=== PATIENT | male | born 1975 | race Caucasian/White ===

== ENCOUNTER 2019-04-07 12:32 | Inpatient (IN) | payer BC, OTHER ==
[2019-04-07] MEDS ORDERED: ONDANSETRON 4 MG/2 ML VIAL ONE ×2 (12:50→16:22)
[2019-04-07] MEDS ORDERED: MORPHINE 4 MG/ML SYR ONE ×2 (12:50→14:12)
[2019-04-07] MEDS ORDERED: NA CHLORIDE 0.9% 1,000 ML ONE ×2 (12:50→13:59)
[2019-04-07] MEDS ORDERED: METRONIDAZOLE 500mg IVPB 500 MG/100 ML BAG IV ONE (12:51)
[2019-04-07] MEDS ORDERED: CEFTRIAXONE/SWI 1gm 1 GM/10 ML SYR ONE (12:51)
[2019-04-07] MEDS ORDERED: CIPROFLOXACIN 400mg IV 400 MG/200 ML BAG IV ONE (12:51)
[2019-04-07 13:17] LABS: Absolute Lymphocytes (CBC) 0.9 K/uL (0.7-4.9); Basophils % 0.2 % (0-1.3); Hematocrit 40.8 % (39.6-49.0); Lymphocytes % 4.1 % (15.3-44.8); MPV 7.7 fL (7.6-11.3); RBC Red Blood Cell Count 4.49 M/uL (4.33-5.43)
[2019-04-07 13:18] LABS: Protime INR 1.34
--- NOTE | 2019-04-07 13:27 | RAD REPORT ---
EXAM DESCRIPTION: Tayo Single View04/07/2019 1:05 pm CLINICAL HISTORY: Abdominal pain COMPARISON: none FINDINGS: The lungs appear clear of acute infiltrate. The heart is normal size IMPRESSION: No acute abnormalities displayed
[2019-04-07 13:36] LABS: ALT/SGPT 45 U/L (12-78); AST/SGOT 13 U/L (15-37); Albumin 3.5 g/dL (3.4-5.0); Alkaline Phosphatase 73 U/L (45-117); BUN Blood Urea Nitrogen 21 mg/dL (7-18); Bicarbonate 27 mmol/L (21-32); Bilirubin Direct 0.4 mg/dL (0-0.2); Glucose Level 139 mg/dL (74-106); Lipase 54 U/L (73-393); Magnesium 2.2 mg/dL (1.8-2.4); NT PRO-BNP 58 pg/mL (<125); Potassium 3.4 mmol/L (3.5-5.1); Sodium Level 133 mmol/L (136-145); Troponin (Emerg Dept Use Only) < 0.02 ng/mL (0.0-0.045)
--- NOTE | 2019-04-07 13:37 | ER ---
Nurse's Notes [facility] Name: Timmy Ji Age: 43 yrs Sex: Male : 1975 Arrival Date: 04/07/2019 Time: 12:34 Bed 13 Private MD: Denisa Curry K Diagnosis: Abdominal tenderness;Fever, unspecified;Elevated white blood cell count;Diverticulitis of large intestine with perforation and abscess without bleeding;Hypokalemia Presentation: 04/07 12:37 Presenting complaint: Patient states: Nausea, diarrhea, abd pain since saturday. la1 Transition of care: patient was not received from another setting of care. Onset of symptoms was April 07, 2019. Risk Assessment: Do you want to hurt yourself or someone else? Patient reports no desire to harm self or others. Initial Sepsis Screen: Does the patient meet any 2 criteria? No. Patient's initial sepsis screen is negative. Does the patient have a suspected source of infection? No. Patient's initial sepsis screen is negative. Care prior to arrival: None. 12:37 Method Of Arrival: Ambulatory la1 12:37 Acuity: BEVERLY 3 la1 Historical: - Allergies: 12:38 No Known Allergies; la1 - PMHx: 12:38 None; la1 - PSHx: 12:38 None; la1 - Immunization history:: Adult Immunizations up to date. - Social history:: Smoking status: Patient/guardian denies using tobacco. - Ebola Screening: : No symptoms or risks identified at this time. - Family history:: not pertinent. Screenin:00 Abuse screen: Denies threats or abuse. Denies injuries from another. Nutritional sg screening: No deficits noted. Tuberculosis screening: No symptoms or risk factors identified. Never had TB. Fall Risk None identified. Assessment: 12:30 General: Appears uncomfortable, well groomed, well developed, well nourished, Behavior sg is calm, cooperative, appropriate for age. Neuro: Level of Consciousness is awake, alert, obeys commands, Oriented to person, place, time, situation, Moves all extremities. Gait is steady, Speech is normal, Facial symmetry appears normal. Cardiovascular: Capillary refill is brisk in bilateral fingers Chest pain is denied. Respiratory: Airway is patent Respiratory effort is even, unlabored, Respiratory pattern is regular, symmetrical. GI: Reports lower abdominal pain, diarrhea, nausea. : No signs and/or symptoms were reported regarding the genitourinary system. EENT: No signs and/or symptoms were reported regarding the EENT system. Derm: Skin is intact, is healthy with good turgor, Skin is clammy, Skin is pale, Skin temperature is cool. Musculoskeletal: Circulation, motion, and sensation intact. Range of motion: intact in all extremities. 13:43 Reassessment: Patient appears in no apparent distress at this time. Patient and/or sg family updated on plan of care and expected duration. Pain level reassessed. Patient is alert, oriented x 3, equal unlabored respirations, skin warm/dry/pink. pt transported to CT. 14:15 General: Appears in no apparent distress. uncomfortable, well developed, Behavior is sv calm, cooperative, appropriate for age. Pain: Complains of pain in left lower quadrant and right lower quadrant Pain currently is 9 out of 10 on a pain scale. Neuro: Level of Consciousness is awake, alert, obeys commands, Oriented to person, place, time, situation, Moves all extremities. Full function. Respiratory: Airway is patent Respiratory effort is even, unlabored, Respiratory pattern is regular, symmetrical. GI: Abdomen is distended. Derm: Skin is pale. 14:23 Reassessment: Dr Terrell at the bedside. sv Vital Signs: 12:38 BP 134 / 73; Pulse 105; Resp 16; Temp 98.4; Pulse Ox 98% on R/A; Weight 104.33 kg; la1 Height 5 ft. 10 in. (177.80 cm); Pain 9/10; 14:28 BP 97 / 66; Pulse 49; Resp 14; Pulse Ox 95% on R/A; ss 15:00 BP 138 / 89; Pulse 100; Resp 20; Pulse Ox 99% ; sv 12:38 Body Mass Index 33.00 (104.33 kg, 177.80 cm) la1 ED Course: 12:34 Patient arrived in ED. as 12:35 Edson Liang MD is Attending Physician. lizzy 12:36 Denisa Curry MD is Private Physician. as 12:38 Triage completed. la1 12:39 Arm band placed on left wrist. la1 12:46 Gil Gongora RN is Primary Nurse. sg 13:00 Initial lab(s) drawn, by me, sent to lab. Inserted saline lock: 20 gauge in right sg antecubital area, using aseptic technique. Blood collected. 13:08 XRAY Chest (1 view) In Process Unspecified. EDMS 13:33 Paramjit Mena MD is Hospitalizing Provider. lizzy 13:46 Patient has correct armband on for positive identification. Bed in low position. Call sv light in reach. Adult w/ patient. Pulse ox on. NIBP on. 13:47 Abdomen In Process Unspecified. EDMS 13:47 Report received from Gil ALMONTE. sv 13:49 EKG done, by spray technician. reviewed by Edson Liang MD. sm3 13:[address] Patient moved back from CT. sv 13:50 Awaiting lab results, Awaiting radiology results. sv 14:20 Mary Medina RN is Primary Nurse. sv 15:01 Type And Screen Sent. sv 15:03 Surgical consent explained by staff, explained by physician, signed by patient. sv 15:04 No provider procedures requiring assistance completed. Patient admitted, IV remains in sv place. intact. Administered Medications: 13:20 Drug: Zofran 4 mg Route: IVP; Site: right antecubital; ss 14:23 Follow up: Response: No adverse reaction sv 13:22 Drug: morphine 4 mg Route: IVP; Site: right antecubital; ss 14:23 Follow up: Response: No adverse reaction; No change in condition sv 13:23 Drug: Rocephin 1 grams Route: IV; Rate: per protocol; Site: right antecubital; ss 13:25 Drug: NS 0.9% 1000 ml Route: IV; Rate: 1 bolus; Site: right antecubital; ss 14:22 Follow up: Response: No adverse reaction; IV Status: Completed infusion; IV Intake: sv 1000ml 13:25 Drug: Flagyl 500 mg Volume: 100 ml; Route: IVPB; Rate: 200 ml/hr; Infused Over: 30 ss mins; Site: right antecubital; 14:22 Follow up: Response: No adverse reaction; IV Status: Completed infusion; IV Intake: sv 100ml 14:20 Drug: morphine 4 mg Route: IVP; Site: right antecubital; sv 14:52 Follow up: Response: No adverse reaction; No change in condition; RASS: Alert and Calm sv (0) 14:21 Drug: NS 0.9% 1000 ml Route: IV; Rate: 1 bolus; Site: right antecubital; sv 15:02 Follow up: Response: No adverse reaction; IV Status: Completed infusion; IV Intake: sv 1000ml 14:21 Drug: Potassium Chloride 20 mEq Route: IV; Rate: per protocol; Site: right antecubital; sv 15:16 Follow up: Response: No adverse reaction; IV Status: Infusion continued upon admission sv 14:22 Drug: Cipro 400 mg Volume: 200 ml; Route: IVPB; Infused Over: 60 mins; Site: right sv antecubital; 15:17 Follow up: Response: No adverse reaction; IV Status: Completed infusion; IV Intake: sv 200ml 15:00 Drug: NS 0.9% with KCl 20 mEq/L 1000 ml Route: IV; Rate: 125 ml/hr; Site: right sv antecubital; 15:16 Follow up: Response: No adverse reaction; IV Status: Infusion continued upon admission sv 15:16 Not Given (Patient Refused): Tylenol Suppository 650 mg [place] once sv Intake: 14:22 IV: 100ml; Total: 100ml. sv 14:22 IV: 1000ml; Total: 1100ml. sv 15:02 IV: 1000ml; Total: 2100ml. sv 15:17 IV: 200ml; Total: 2300ml. sv Outcome: 13:36 Decision to Hospitalize by Provider. [facility] 15:18 Admitted to OR accompanied by nurse, family with patient, via stretcher, with chart, sv Report called to Nelsy ALMONTE 15:18 Condition: stable 15:18 Instructed on the need for admit. 15:18 Patient left the ED. sv Signatures: Dispatcher [employer] Mary Phipps RN GAGE Gil Gongoar RN RN sg Anderson, Corey, MD MD cha Martinez, Amelia as Smirch, Shelby, RN RN ss Attema, Lee, RN RN Carmen Law3 Corrections: (The following items were deleted from the chart) 14:30 14:15 Derm: Skin is pink, warm \T\ dry. sv sv
--- NOTE | 2019-04-07 13:37 | EDPHYS ---
Physician Documentation [facility] Name: Timmy Ji Age: 43 yrs Sex: Male : 1975 Arrival Date: 04/07/2019 Time: 12:34 Bed 13 Private MD: Denisa Curry K ED Physician Edson Liang HPI: 04/07 12:46 This 43 yrs old Male presents to ER via Ambulatory with complaints of lizzy Abdominal Pain. 12:46 The patient presents with abdominal pain in the lower abdomen. Onset: The lizzy symptoms/episode began/occurred 3 day(s) ago. The symptoms do not radiate. Associated signs and symptoms: none. Modifying factors: The symptoms are alleviated by nothing, the symptoms are aggravated by pressure, walking. Severity of pain: At its worst the pain was moderate in the emergency department the pain is unchanged. The patient has not experienced similar symptoms in the past. Historical: - Allergies: 12:38 No Known Allergies; la1 - PMHx: 12:38 None; la1 - PSHx: 12:38 None; la1 - Immunization history:: Adult Immunizations up to date. - Social history:: Smoking status: Patient/guardian denies using tobacco. - Ebola Screening: : No symptoms or risks identified at this time. - Family history:: not pertinent. ROS: 12:46 Constitutional: Negative for fever, chills, and weight loss, Eyes: Negative for injury, lizzy pain, redness, and discharge, ENT: Negative for injury, pain, and discharge, Neck: Negative for injury, pain, and swelling, Cardiovascular: Negative for chest pain, palpitations, and edema, Respiratory: Negative for shortness of breath, cough, wheezing, and pleuritic chest pain, Back: Negative for injury and pain, : Negative for injury, bleeding, discharge, and swelling, MS/Extremity: Negative for injury and deformity, Skin: Negative for injury, rash, and discoloration, Neuro: Negative for headache, weakness, numbness, tingling, and seizure, Psych: Negative for depression, anxiety, suicide ideation, homicidal ideation, and hallucinations, Allergy/Immunology: Negative for hives, rash, and allergies, Endocrine: Negative for neck swelling, polydipsia, polyuria, polyphagia, and marked weight changes, Hematologic/Lymphatic: Negative for swollen nodes, abnormal bleeding, and unusual bruising. 12:46 Abdomen/GI: Positive for abdominal pain, abdominal distension, of the right lower quadrant and left lower quadrant. Exam: 12:46 Constitutional: This is a well developed, well nourished patient who is awake, alert, lizzy and in no acute distress. Head/Face: Normocephalic, atraumatic. Eyes: Pupils equal round and reactive to light, extra-ocular motions intact. Lids and lashes normal. Conjunctiva and sclera are non-icteric and not injected. Cornea within normal limits. Periorbital areas with no swelling, redness, or edema. ENT: Nares patent. No nasal discharge, no septal abnormalities noted. Tympanic membranes are normal and external auditory canals are clear. Oropharynx with no redness, swelling, or masses, exudates, or evidence of obstruction, uvula midline. Mucous membranes moist. Neck: Trachea midline, no thyromegaly or masses palpated, and no cervical lymphadenopathy. Supple, full range of motion without nuchal rigidity, or vertebral point tenderness. No Meningismus. Chest/axilla: Normal chest wall appearance and motion. Nontender with no deformity. No lesions are appreciated. Respiratory: Lungs have equal breath sounds bilaterally, clear to auscultation and percussion. No rales, rhonchi or wheezes noted. No increased work of breathing, no retractions or nasal flaring. Back: No spinal tenderness. No costovertebral tenderness. Full range of motion. Male : Normal genitalia with no discharge or lesions. Skin: Warm, dry with normal turgor. Normal color with no rashes, no lesions, and no evidence of cellulitis. MS/ Extremity: Pulses equal, no cyanosis. Neurovascular intact. Full, normal range of motion. Neuro: Awake and alert, GCS 15, oriented to person, place, time, and situation. Cranial nerves II-XII grossly intact. Motor strength 5/5 in all extremities. Sensory grossly intact. Cerebellar exam normal. Normal gait. Psych: Awake, alert, with orientation to person, place and time. Behavior, mood, and affect are within normal limits. 12:46 Cardiovascular: Rate: tachycardic, Rhythm: regular, Pulses: no pulse deficits are appreciated, Heart sounds: normal, Edema: is not appreciated, JVD: is not appreciated. 12:46 Abdomen/GI: Inspection: distension, Bowel sounds: normal, Palpation: moderate abdominal tenderness, in the right lower quadrant and left lower quadrant. Vital Signs: 12:38 BP 134 / 73; Pulse 105; Resp 16; Temp 98.4; Pulse Ox 98% on R/A; Weight 104.33 kg; la1 Height 5 ft. 10 in. (177.80 cm); Pain 9/10; 14:28 BP 97 / 66; Pulse 49; Resp 14; Pulse Ox 95% on R/A; ss 15:00 BP 138 / 89; Pulse 100; Resp 20; Pulse Ox 99% ; sv 12:38 Body Mass Index 33.00 (104.33 kg, 177.80 cm) la1 MDM: 12:40 Patient medically screened. [facility] 12:48 Data reviewed: vital signs, nurses notes, lab test result(s), EKG, radiologic studies, [facility] CT scan. 04/07 12:46 Order name: Basic Metabolic Panel; Complete Time: 13:55 [facility] 04/07 12:46 Order name: CBC with Diff; Complete Time: 14:51 [facility] 04/07 12:46 Order name: LFT's; Complete Time: 13:55 [facility] 04/07 12:46 Order name: Magnesium; Complete Time: 13:55 [facility] 04/07 12:46 Order name: NT PRO-BNP; Complete Time: 13:55 [facility] 04/07 12:46 Order name: PT-INR; Complete Time: 13:55 [facility] 04/07 12:46 Order name: Troponin (emerg Dept Use Only); Complete Time: 13:55 [facility] 04/07 12:46 Order name: XRAY Chest (1 view); Complete Time: 13:55 [facility] 04/07 12:46 Order name: Lipase; Complete Time: 13:55 [facility] 04/07 12:48 Order name: Stool Culture [facility] 04/07 12:48 Order name: Fecal Leukocyte Stain [facility] 04/07 13:19 Order name: Urine Dipstick--Ancillary (enter results) 04/07 14:34 Order name: Manual Differential; Complete Time: 14:51 EDMS 04/07 14:48 Order name: Type And Screen bd 04/07 12:46 Order name: EKG; Complete Time: 12:49 [facility] 04/07 12:46 Order name: Cardiac monitoring; Complete Time: 13:40 [facility] 04/07 13:45 Order name: CONS Physician Consult; Complete Time: 13:56 EDNC 04/07 13:47 Order name: Abdomen ; Complete Time: 14:09 EDNC 04/07 12:46 Order name: EKG - Nurse/Tech; Complete Time: 13:40 [facility] 04/07 12:46 Order name: IV Saline Lock; Complete Time: 13:41 [facility] 04/07 12:46 Order name: Labs collected and sent; Complete Time: 13:41 [facility] 04/07 12:46 Order name: O2 Per Protocol; Complete Time: 13:41 [facility] 04/07 12:46 Order name: O2 Sat Monitoring; Complete Time: 13:41 [facility] 04/07 12:46 Order name: Urine Dipstick-Ancillary (obtain specimen); Complete Time: 13:27 [facility] 04/07 13:55 Order name: NPO; Complete Time: 13:56 [facility] Administered Medications: 13:20 Drug: Zofran 4 mg Route: IVP; Site: right antecubital; ss 14:23 Follow up: Response: No adverse reaction sv 13:22 Drug: morphine 4 mg Route: IVP; Site: right antecubital; ss 14:23 Follow up: Response: No adverse reaction; No change in condition sv 13:23 Drug: Rocephin 1 grams Route: IV; Rate: per protocol; Site: right antecubital; ss 13:25 Drug: NS 0.9% 1000 ml Route: IV; Rate: 1 bolus; Site: right antecubital; ss 14:22 Follow up: Response: No adverse reaction; IV Status: Completed infusion; IV Intake: sv 1000ml 13:25 Drug: Flagyl 500 mg Volume: 100 ml; Route: IVPB; Rate: 200 ml/hr; Infused Over: 30 ss mins; Site: right antecubital; 14:22 Follow up: Response: No adverse reaction; IV Status: Completed infusion; IV Intake: sv 100ml 14:20 Drug: morphine 4 mg Route: IVP; Site: right antecubital; sv 14:52 Follow up: Response: No adverse reaction; No change in condition; RASS: Alert and Calm sv (0) 14:21 Drug: NS 0.9% 1000 ml Route: IV; Rate: 1 bolus; Site: right antecubital; sv 15:02 Follow up: Response: No adverse reaction; IV Status: Completed infusion; IV Intake: sv 1000ml 14:21 Drug: Potassium Chloride 20 mEq Route: IV; Rate: per protocol; Site: right antecubital; sv 15:16 Follow up: Response: No adverse reaction; IV Status: Infusion continued upon admission sv 14:22 Drug: Cipro 400 mg Volume: 200 ml; Route: IVPB; Infused Over: 60 mins; Site: right sv antecubital; 15:17 Follow up: Response: No adverse reaction; IV Status: Completed infusion; IV Intake: sv 200ml 15:00 Drug: NS 0.9% with KCl 20 mEq/L 1000 ml Route: IV; Rate: 125 ml/hr; Site: right sv antecubital; 15:16 Follow up: Response: No adverse reaction; IV Status: Infusion continued upon admission sv 15:16 Not Given (Patient Refused): Tylenol Suppository 650 mg [place] once sv Disposition: 04/07/19 13:36 Hospitalization ordered by Paramjit Mena for Inpatient Admission. Preliminary diagnosis are Abdominal tenderness, Fever, unspecified, Elevated white blood cell count, Diverticulitis of large intestine with perforation and abscess without bleeding, Hypokalemia. - Bed requested for Telemetry/MedSurg (Inpatient). - Status is Inpatient Admission. sv - Condition is Stable. - Problem is new. - Symptoms have improved. UTI on Admission? No Signatures: Dispatcher [employer] EDNC Citlalli Griffiths Stephanie, RN RN sv Anderson, Corey, MD MD cha Smirch, Shelby, RN RN ss Attema, Lee, RN RN la1 Max Juares RN RN ja1 Corrections: (The following items were deleted from the chart) 13:47 12:49 Abdomen Pelvis W Con+CT.RAD.BRZ ordered. EDNC EDMS 13:59 13:36 Hospitalization Ordered by Paramjit Mena MD for Inpatient Admission. Preliminary lizzy diagnosis is Abdominal tenderness; Fever, unspecified; Elevated white blood cell count. Bed requested for Telemetry/MedSurg (Inpatient). Status is Inpatient Admission. Condition is Stable. Problem is new. Symptoms have improved. UTI on Admission? No. lizzy 14:06 13:59 04/07/2019 13:36 Hospitalization Ordered by Paramjit Mena MD for Inpatient bd Admission. Preliminary diagnosis is Abdominal tenderness; Fever, unspecified; Elevated white blood cell count; Diverticulitis of large intestine with perforation and abscess without bleeding. Bed requested for Telemetry/MedSurg (Inpatient). Status is Inpatient Admission. Condition is Stable. Problem is new. Symptoms have improved. UTI on Admission? No. lizzy 14:50 14:06 04/07/2019 13:36 Hospitalization Ordered by Paramjit Mena MD for Inpatient ja1 Admission. Preliminary diagnosis is Abdominal tenderness; Fever, unspecified; Elevated white blood cell count; Diverticulitis of large intestine with perforation and abscess without bleeding. Bed requested for Telemetry/MedSurg (Inpatient). Status is Inpatient Admission. Condition is Stable. Problem is new. Symptoms have improved. UTI on Admission? No. 14:51 14:50 04/07/2019 13:36 Hospitalization Ordered by Paramjit Mena MD for Inpatient lizzy Admission. Preliminary diagnosis is Abdominal tenderness; Fever, unspecified; Elevated white blood cell count; Diverticulitis of large intestine with perforation and abscess without bleeding. Bed requested for Telemetry/MedSurg (Inpatient). Status is Inpatient Admission. Condition is Stable. Problem is new. Symptoms have improved. UTI on Admission? No. ja1 15:18 14:51 04/07/2019 13:36 Hospitalization Ordered by Paramjit Mena MD for Inpatient Admission. Preliminary diagnosis is Abdominal tenderness; Fever, unspecified; Elevated white blood cell count; Diverticulitis of large intestine with perforation and abscess without bleeding; Hypokalemia. Bed requested for Telemetry/MedSurg (Inpatient). Status is Inpatient Admission. Condition is Stable. Problem is new. Symptoms have improved. UTI on Admission? No. lizzy
[2019-04-07] MEDS ORDERED: NS KCL 20MEQ 1,000 ML IV ONE (13:59)
[2019-04-07] MEDS ORDERED: KCL 20 MEQ/100 mL IVPB 20 MEQ/100 ML BAG IV ONE (13:59)
--- NOTE | 2019-04-07 14:00 | RAD REPORT ---
EXAM DESCRIPTION: CT - Abdomen Pelvis Wo Contrast - 04/07/2019 1:45 pm CLINICAL HISTORY: Abdominal pain COMPARISON: None TECHNIQUE: Computed axial tomography of the abdomen and pelvis was obtained. IV and oral contrast we re not requested. All CT scans are performed using dose optimization technique as appropriate and may include automated exposure control or mA/KV adjustment according to patient size. FINDINGS: The evaluation of solid organs, vessels and bowel is limited secondary to the lack of con trast administration. Fatty liver Spleen, pancreas, adrenals and kidneys appear grossly normal. Diverticula stem from the colon. Extraluminal air surrounds the sigmoid colon within the mesocolon. T he ill-defined air measures approximately 7 x 3 centimeters. A fluid-filled abscess is not present. M oderate stranding within the adjacent fat. Small amount of ascites Small inguinal hernias contain fat IMPRESSION: Perforated sigmoid diverticulitis
[2019-04-07] MEDS ORDERED: ACETAMINOPHEN 650MG/RECT SUPP PR ONE (14:12)
[2019-04-07 14:30] LABS: Blood Morphology Comment NOT SEEN (NOT SEEN); Platelet Estimate ADEQ
[2019-04-07] MEDS ORDERED: ACETAMINOPHEN 325 MG TABLET PO PRN (15:06)
[2019-04-07] MEDS ORDERED: MORPHINE 4 MG/ML SYR IV PRN (15:06)
[2019-04-07] MEDS ORDERED: ONDANSETRON 4 MG/2 ML VIAL IV PRN ×2 (15:06→18:08)
[2019-04-07] MEDS ORDERED: Ringers Lactate 1,000 ML IV ONE ×2 (15:19→16:51)
[2019-04-07] MEDS ORDERED: PROPOFOL 200 MG/20 ML VIAL IV ONE (15:31)
[2019-04-07] MEDS ORDERED: FENTANYL CITR 250 MCG/5 ML ONE (15:31)
[2019-04-07] MEDS ORDERED: LIDOCAINE 2% MPF 5 ML VIAL ONE (15:32)
[2019-04-07] MEDS ORDERED: ROCURONIUM 50 MG/5 ML VIAL IV ONE ×2 (15:32→16:53)
[2019-04-07] MEDS ORDERED: SUCCINYLCHOLINE 20 MG/ML (10 ML) IV ONE (15:34)
[2019-04-07] MEDS ORDERED: NA CIT/CITRIC AC 30 ML ORAL UDC ONE (15:36)
--- NOTE | 2019-04-07 15:59 | EKG ---
Test Date: 2019-04-07 Test Time: 13:28:23 Feeder Tender: KYRA MEASUREMENT RESULTS: Intervals: Rate: 102 TX: 156 QRSD: 114 QT: 336 QTc: 437 [place]: P: 53 TX: 156 QRS: 77 T: 20 INTERPRETIVE STATEMENTS: Sinus tachycardia Nonspecific ST and T wave abnormality Abnormal ECG No previous ECG available for comparison Electronically Signed On 04-07-19 15:58:01 CDT by Juan Carlos Yee
[2019-04-07] MEDS ORDERED: dexAMETHasone 10 MG/ML VIAL ONE (16:22)
[2019-04-07] MEDS ORDERED: KETOROLAC 30 MG/ML INJ ONE (16:32)
[2019-04-07] MEDS ORDERED: NEOSTIGMINE 1 MG/ML -10 ML VIAL ONE ×2 (17:00→17:24)
[2019-04-07] MEDS ORDERED: GLYCOPYRROLATE 0.2 MG/ML SYR ONE ×2 (17:00→17:24)
[2019-04-07] MEDS ORDERED: Phenylephrine HCl 10 MG/ML 1 ML VIAL ONE (17:20)
[2019-04-07] MEDS ORDERED: NALOXONE 0.4 MG/ML VIAL ONE (17:31)
--- NOTE | 2019-04-07 17:35 | P.OP ---
Recreation Superintendent: Germain ROSE Preoperative diagnosis: Perforated Acute Sigmoid Diverticulitis Postoperative diagnosis: same Primary procedure: Exp Lap, Sigmoid Resection, Colostomy (Cao's Procedure) Anesthesia: General Estimated blood loss: min Specimen: Sigmoid Colon Findings: as above Complications: None Drain(s): Nasogastric, Urinary catheter, JUSTEN drain Transferred to: Recovery Room Condition: Good
[2019-04-07] MEDS ORDERED: LABETALOL HCL 100 MG/20 ML ONE (17:42)
[2019-04-07] MEDS ORDERED: MIDAZOLAM HCL 2 MG/2 ML INJ ONE (17:47)
[2019-04-07] MEDS ORDERED: NALOXONE 0.4 MG/ML VIAL IV PRN (18:08)
[2019-04-07] MEDS ORDERED: SODIUM CHLORIDE 0.9% 10ML INJ IV PRN (18:08)
[2019-04-07] MEDS: HYDROMORPHONE HCL 1 MG/ML INJ ONE ×6 (18:20→18:45)
[2019-04-07] MEDS: NS KCL 20MEQ 20 MEQ/1,000 ML BAG IV SCH ×2 (19:37→23:06)
[2019-04-07] MEDS: METRONIDAZOLE 500mg IVPB 500 MG/100 ML BAG IV SCH (19:39)
[2019-04-07] MEDS: HYDROMORPHONE/PCA 10 MG/50 ML SYR IV PRN (19:40)
[2019-04-07] MEDS: HYDROMORPHONE HCL 1 MG/ML INJ IV PRN (19:57)
--- NOTE | 2019-04-07 20:01 | PREOPCON ---
Date of Consultation: 04/07/2019 Reason For Consultation: Abdominal pain. History Of Present Illness: The patient is a 43-year-old gentleman, who comes in with lower abdomina l pain beginning as a diffuse abdominal pain on Saturday and then localizing to the left lower quadra nt and suprapubic region. He denies any nausea or vomiting currently, occasional diarrhea, occasiona l constipation. No blood in his stool. No dysuria or hematuria. No sore throat, runny nose, cough, headaches, or dizziness. No chest pain. No fever or chills. He has never had pain like this and t here is no family history of colorectal malignancies. Review of Systems: Otherwise unremarkable. Past Medical History: Negative. Past Surgical History: Negative. Allergies: NO ALLERGIES. Social History: He vapes. He does not smoke cigarettes. Drinks occasionally. Family History: Significant for brain cancer. Physical Examination: Vital Signs: Significant for slightly elevated pulse rate 105. Otherwise, vitals are stable. He is afebrile. General: He is awake, alert, and oriented x3. Head and Neck: Cranial nerves 2 through 12 are grossly within normal limits. No neck masses. No JV D. Throat clear. Neck is supple. Chest: Clear. Heart: S1, S2. Abdomen: Soft. Minimal distention. Hypoactive bowel sounds. The left lower quadrant suprapubic re gion, patient has rebound, rigidity, and guarding tenderness. Extremities: Adequately perfused. Nontender. Neurologic: Nonfocal. Diagnostic Data: His CT of the abdomen and pelvis reviewed with Dr. Epstein and it shows a perforat ed sigmoid diverticulitis with ill-defined air, measuring approximately 7 x 3 cm. There is extralumi nal air surrounds the sigmoid colon within the mesocolon and there is diverticula from the colon as w ell. A fluid-fill abscess is not present. There is moderate stranding within the adjacent fat. The re is small amount of ascites. His chest x-ray is within normal limits. Laboratory Data: Reviewed. His white count is 22.3 with a left shift. His INR is 1.34. His chemis try reviewed. Potassium is 3.4, BUN is 21, creatinine is 1.4. Assessment: A 43-year-old gentleman with acute sigmoid perforated diverticulitis with peritonitis an d significant leukocytosis. Recommendations: We will proceed with exploratory laparotomy, Diaz's procedure with sigmoid rese ction with end colostomy. Risks, benefits, and alternatives were explained to the patient and family in detail. He was advised that he would need a colonoscopy prior to reversal in approximately 3 mon ths. He understands and agrees. GLENDA/BONY Voice ID: [id number] Report ID: [id number]
[2019-04-07] MEDS ORDERED: HYDROMORPHONE HCL 1 MG/ML INJ IV ONE (20:12)
[2019-04-07] MEDS ORDERED: FAMOTIDINE 20 MG/2 ML VIAL IV SCH (21:00)
[2019-04-07] MEDS: CIPROFLOXACIN 400mg IV 400 MG/200 ML BAG IV SCH (23:03)
[2019-04-08] MEDS: HYDROMORPHONE HCL 1 MG/ML INJ IV PRN ×5 (00:20→21:11)
[2019-04-08] MEDS: METRONIDAZOLE 500mg IVPB 500 MG/100 ML BAG IV SCH ×5 (00:20→23:41)
--- NOTE | 2019-04-08 00:58 | OP ---
Date of Procedure: 04/07/2019 Surgeon: Faustino Terrell MD Negative Retoucher: ROSE Newton Preoperative Diagnosis: Acute perforated sigmoid diverticulitis. Postoperative Diagnosis: Acute perforated sigmoid diverticulitis. Procedure: Exploratory laparotomy, sigmoid resection, colostomy, Diaz procedure. Estimated Blood Loss: Minimal. Specimen: Sigmoid colon. Findings: As above. Anesthesia: General. Complications: None. Drains: JUSTEN #10 flat. Disposition: Patient tolerated the procedure in stable condition and taken to Recovery in good gener al condition. Procedure In Detail: Patient was brought to the OR and placed in supine position. General anesthesi a was begun. Patient was prepped and draped in the usual sterile fashion. Then, 20 blade was used t o make a generous midline incision from just above the umbilicus to the pubis. Subcutaneous tissue w as divided. The fascia was identified and divided. The peritoneal cavity was entered with sharp and blunt dissection. Exploratory laparotomy was performed. Normal GE junction. Normal stomach. Norm al duodenum. Normal small bowel from ligament of Treitz to the cecum. Normal appendix. Ascending c olon, transverse colon, descending colon, proximal and mid sigmoid colon were within normal limits. The distal sigmoid colon was in the pelvis below the sacral promontory. It was greatly dilated. The re was pus around it. There was some fecal material present as well. This was all aspirated and the n mid sigmoid colon point was identified. Proximal normal sigmoid colon to the inflamed indurated an d perforated sigmoid colon. Then, a contour stapler was used to divide this. Then, LigaSure was use d to divide the mesocolon all the way down into the pelvis where normal rectum was palpated. The con tour stapler was used to divide that at the sigmoid rectal junction. The specimen was opened in the operating room. After it was removed, there was no tumor seen. There was all inflammation. White l ine was mobilized in the left pericolic gutter and then the sigmoid colon was mobilized to make sure there would not be a tension with colostomy and then a 2 cm incision on the skin was made. Subcutane ous fat was excised. Fascia was identified and divided, and then dilated to 2 fingers diameter and t hen the end of the sigmoid colon was pulled through in the fascial opening and secured with Allis cla mps. While the abdomen was thoroughly irrigated, effluent was clear. The Jun-Chavez drain #10 fl at was placed in the pelvis and secured with 3-0 nylon. Then, there was no evidence of bowel injury or other evidence of disease seen. #2 nylon was used to close the midline fascia. Subcutaneous woun ds were irrigated, bleeding was controlled with cautery, and then aleta were used to close the skin . Sterile dressing was applied on that side and then the colostomy was matured with 3-0 interrupted chromic sutures circumferential and the colostomy was digitally examined. There was no evidence of a ny obstruction. Then, colostomy bag was place and the patient was awakened and taken to Recovery in good general condition. /MODL Voice ID: [id number] Report ID: [id number]
[2019-04-08 04:57] LABS: Absolute Lymphocytes (CBC) 0.7 K/uL (0.7-4.9); Basophils % 0.1 % (0-1.3); Hematocrit 37.5 % (39.6-49.0); Lymphocytes % 3.3 % (15.3-44.8); MPV 7.7 fL (7.6-11.3); RBC Red Blood Cell Count 4.05 M/uL (4.33-5.43)
[2019-04-08 05:20] LABS: Bilirubin Direct 0.3 mg/dL (0-0.2); Bilirubin Total 0.7 mg/dL (0.2-1.0); Magnesium 2.2 mg/dL (1.8-2.4); Phosphorus 3.3 mg/dL (2.5-4.9); Potassium 4.1 mmol/L (3.5-5.1); Protein, Total 7.1 g/dL (6.4-8.2)
[2019-04-08] MEDS: NS KCL 20MEQ 20 MEQ/1,000 ML BAG IV SCH ×3 (07:28→23:06)
[2019-04-08] MEDS: HYDROMORPHONE/PCA 10 MG/50 ML SYR IV PRN (09:20)
[2019-04-08] MEDS: PANTOPRAZOLE 40 MG INJ IVP SCH (09:21)
[2019-04-08] MEDS: ENOXAPARIN 40 MG/0.4 ML SQ SCH (09:21)
[2019-04-08] MEDS: CIPROFLOXACIN 400mg IV 400 MG/200 ML BAG IV SCH ×2 (09:22→21:10)
--- NOTE | 2019-04-08 10:23 | PN ---
Date of Progress Note: 04/08/2019 Subjective: Patient is awake and alert. Physical Examination: Vital Signs: Significant for slight tachycardia. Blood pressure is little high and his respiratory status occasionally is above 22. He is afebrile. His I's and O's are significant for 100 cc of sero sanguineous fluid in the JUSTEN drain. Urine output is adequate. NG tube is 50 cc this shift, 400 cc pr ior shift. Abdomen: Soft, slightly distended. Hypoactive bowel sounds. JUSTEN drain has serosanguinous fluid in i t. Ostomy has some serous fluid and the mucosa is slightly edematous, but it has a good red look to it as well. Assessment: Status post Diaz procedure, perforated sigmoid diverticulitis. Recommendations: Continue n.p.o., NG tube, IV fluid, IV antibiotics. Encourage ambulation, incentiv e spirometry. Continue monitoring in the ICU as patient is still has leukocytosis significantly. Pr obably can be transferred to the floor tomorrow. We will get a dietary consultation for his divertic ulitis and also manages pain parenterally. /MODL Voice ID: [id number] Report ID: [id number]
[2019-04-08] MEDS ORDERED: LORazepam 2 MG/ML VIAL IV PRN (17:10)
--- NOTE | 2019-04-08 21:21 | P.HP ---
Certification for Inpatient Patient admitted to: Inpatient With expected LOS: >2 Midnights Practitioner: I am a practitioner with admitting privileges, knowledge of patient current condition, hospital course, and medical plan of care. Services: Services provided to patient in accordance with Admission requirements found in Title 42 Section 412.3 of the Code of Federal Regulations Patient History Date of Service: 04/08/19 Reason for admission: ABDOMEN PAIN History of Present Illness: MR. MÁRQUEZ HAS HAD DIVERTICULITIS ABOUT 10 YEARS AGO. HE DOES NOT FOLLOW DIET OF NOT EATING SEEDS. HE COMES WITH ACUTE VANESSA IN 4 DAYS. HE HAD LARGE PHLEGMON WITH RUPTURED DIVERTICUAR INFECTION. DR. CHAMPION DID EMERGENT SURGERY. HE HAD TO DO PARTIAL COLECTOMY. I COULD NOT SEE HIM LAST PM WHEN I CAME HE WAS IN SURGERY. I SAW HIM THIS AM. Allergies No Known Allergies Allergy (Unverified 04/07/19 15:05) Home Medications: NK [No Home Meds] 04/07/19 - Past Medical/Surgical History Has patient received pneumonia vaccine in the past: No Diabetic: No -: diverticulitis - Family History Father -: Diabetes Mother -: Hypertension - Social History Smoking Status: Former smoker Alcohol use: No CD- Drugs: No Caffeine use: Yes Place of Residence: Home Review of Systems 10-point ROS is otherwise unremarkable General: Weakness Gastrointestinal: Abdominal Pain, No Distention Physical Examination - Vital Signs Temperature: 98.9 F Blood Pressure: 143/92 Pulse: 111 Respirations: 19 Pulse Ox (%): 96 - Physical Exam General: Alert, Mild distress HEENT: Atraumatic, PERRLA, Mucous membr. moist/pink, EOMI, Sclerae nonicteric Neck: Supple, 2+ carotid pulse no bruit, No LAD, Without JVD or thyroid abnormality Respiratory: Clear to auscultation bilaterally, Normal air movement Cardiovascular: Regular rate/rhythm, Normal S1 S2 Gastrointestinal: Absent bowel sounds, Tenderness Musculoskeletal: No tenderness Integumentary: No rashes Neurological: Normal gait, Normal speech, Normal strength at 5/5 x4 extr, Normal tone, Normal affect Lymphatics: No axilla or inguinal lymphadenopathy Assessment and Plan - Problems (Diagnosis) (1) Rupture of colon Current Visit: Yes Status: Acute Plan: FROM DIVERTICULTIS. IV ABX. SP PARTIAL COLECTOMY. HE WILL STOP ALL SEEDS. STABLE. - Advance Directives Does patient have a Living Will: No Does patient have a Durable POA for Healthcare: No
[2019-04-09] MEDS: HYDROMORPHONE/PCA 10 MG/50 ML SYR IV PRN ×2 (00:18→19:01)
[2019-04-09] MEDS: HYDROMORPHONE HCL 1 MG/ML INJ IV PRN (00:18)
[2019-04-09] MEDS: NS KCL 20MEQ 20 MEQ/1,000 ML BAG IV SCH ×5 (04:03→18:00)
[2019-04-09] MEDS: METRONIDAZOLE 500mg IVPB 500 MG/100 ML BAG IV SCH ×3 (05:00→17:19)
[2019-04-09 06:27] LABS: Absolute Lymphocytes (CBC) 1.4 K/uL (0.7-4.9); Basophils % 0.1 % (0-1.3); Hematocrit 35.9 % (39.6-49.0); Lymphocytes % 9.2 % (15.3-44.8); MPV 7.5 fL (7.6-11.3); RBC Red Blood Cell Count 3.88 M/uL (4.33-5.43)
[2019-04-09 06:30] LABS: Potassium 3.9 mmol/L (3.5-5.1)
[2019-04-09 07:47] LABS: Magnesium 2.5 mg/dL (1.8-2.4); Phosphorus 1.4 mg/dL (2.5-4.9)
--- NOTE | 2019-04-09 10:22 | RAD REPORT ---
EXAM DESCRIPTION: Tayo Single View04/09/2019 9:43 am CLINICAL HISTORY: fever COMPARISON: April 07 FINDINGS: The lungs appear clear of acute infiltrate. The heart is normal size A nasogastric tube is been placed into the stomach
[2019-04-09] MEDS: CIPROFLOXACIN 400mg IV 400 MG/200 ML BAG IV SCH ×2 (10:29→20:10)
[2019-04-09] MEDS: PANTOPRAZOLE 40 MG INJ IVP SCH (10:29)
[2019-04-09] MEDS: ENOXAPARIN 40 MG/0.4 ML SQ SCH (10:29)
[2019-04-09] MEDS: METOPROLOL TARTRATE 5 MG/5 ML INJ IV SCH ×3 (10:53→23:45)
--- NOTE | 2019-04-09 11:34 | EKG ---
Test Date: 2019-04-09 Test Time: 10:39:04 Metal Fitter: ANTOINE/T MEASUREMENT RESULTS: Intervals: Rate: 112 MD: 166 QRSD: 98 QT: 326 QTc: 444 [place]: P: 48 MD: 166 QRS: 71 T: 31 INTERPRETIVE STATEMENTS: Sinus tachycardia Incomplete right bundle branch block Borderline ECG Compared to ECG 04/07/2019 13:28:23 Incomplete right bundle-branch block now present ST (T wave) deviation no longer present Electronically Signed On 04-09-19 11:34:13 CDT by Juan Carlos Yee
--- NOTE | 2019-04-09 14:19 | RAD REPORT ---
EXAM DESCRIPTION: CT - Chest For Pe Angio - 04/09/2019 1:50 pm CLINICAL HISTORY: Shortness of breath, chest pain, recent history of perforated diverticulitis, gabrielle st film April 09 COMPARISON: Chest film April 09 TECHNIQUE: Dynamically enhanced 3 mm thick images of the chest were obtained during administration o f approximately 150mL Isovue 370 IV contrast. Coronal and oblique MIP reconstruction images were gene rated and reviewed. Exam utilizes a protocol to evaluate the pulmonary arterial tree. All CT scans are performed using dose optimization technique as appropriate and may include automated exposure control or mA/KV adjustment according to patient size. FINDINGS: No pulmonary emboli identifiable. The central and lobar branches are clear. Segmental bran ches also appear clear of pulmonary embolic disease. There is motion degradation involving the periph eral branches of each lower lobe. Exam sensitivity is diminished. Likelihood of pulmonary embolic dis ease is felt to be quite low for these branches. The aorta as imaged shows no acute or suspicious finding. No pericardial thickening or effusion. No infiltrate or mass in the lung parenchyma. No pleural effusion or pleural thickening. No mediastinal or hilar suspicious masses. No chest wall masses or abnormal axillary lymphadenopathy. NG tube is in place extending to the midportion of the stomach. IMPRESSION: No pulmonary emboli identified. Bilateral lower lobe far peripheral branch assessment is compromised by motion. Probability of signif icant pulmonary embolic disease within these branches felt to be quite low. No diffuse pulmonary edema, mass or consolidation of the lung parenchyma.
--- NOTE | 2019-04-09 16:17 | PN ---
Date of Progress Note: 04/09/2019 Subjective: Patient is awake and alert. He was agitated last night. His heart rate was up. He sti ll little agitated. He denies any significant issue with drinking alcohol. He was afebrile last nig ht, but this morning had low-grade temperature. He is not in any significant pain, however, blood pr essure is slightly elevated too. Objective: Vital Signs: Otherwise stable. Currently is afebrile. NG tube put out 1400, JUSTEN serosan guineous, ostomy 10 cc. Abdomen: Soft, nondistended, hypoactive bowel sounds. Ostomy mucosa is a little congested, little e dematous. Laboratory Data: Reviewed. His white count is decreased. Left shift is better. Electrolytes revie sat. Assessment: Status post Diaz procedure for perforated acute sigmoid diverticulitis. Recommendations: We will transfer the patient to the floor today. Continue IV fluids, IV antibiotic s. NG tube and Miller were discontinued yesterday. Continue JUSTEN drain. Encourage ambulation and DVT prophylaxis. Treat patient with Ativan p.r.n. for agitation. Clinically, patient is slowly improvin gSera /MODL Voice ID: [id number] Report ID: [id number]
--- NOTE | 2019-04-09 18:02 | P.PN ---
Subjective Date of Service: 04/09/19 Chief Complaint: SP SURGERY Subjective: C/O voiced (HE IS REALLY ANGRY TODAY NURSE THOUGHT HE WAS DRINKING ALCOHOL FROM BOTTLE IN HIS BAG. PER HIM IT WAS WATER BOTTLE. HE IS TO HAVE JUST ICE CHIPS FOR NOW. HE ALSO SAID NURSE SEARCHED HIS BAG AND HE WAS NOT HAPPY ABOUT IT. RN SAID SHE WAS PUTTING IT ON SIDE OF BED HE WAS HOLDING ON THE POST SURGICAL ABDOMEN. SHE DID NOT MEAN TO ACT LIKE SHE WAS SEARCHING IT.) Review of Systems 10-point ROS is otherwise unremarkable Physical Examination - Vital Signs Temperature: 98.6 F Blood Pressure: 134/72 Pulse: 104 Respirations: 20 Pulse Ox (%): 95 - Physical Exam General: Alert, Mild distress, Obese HEENT: Atraumatic, PERRLA, EOMI Neck: Supple, JVD not distended Respiratory: Clear to auscultation bilaterally, Normal air movement Cardiovascular: Regular rate/rhythm, Normal S1 S2 Gastrointestinal: Soft and benign, Absent bowel sounds Musculoskeletal: No tenderness Integumentary: No rashes Neurological: Normal speech, Normal tone, Normal affect Lymphatics: No axilla or inguinal lymphadenopathy - Studies Microbiology Data (last 24 hrs): 04/07/19 13:10 Stool Culture & Sensitivity - Final Medications List Reviewed: Yes Assessment And Plan - Current Problems (Diagnosis) (1) Rupture of colon Current Visit: Yes Status: Acute Plan: FROM DIVERTICULTIS. IV ABX. SP PARTIAL COLECTOMY. HE WILL STOP ALL SEEDS. STABLE. POST OP DAY 1. STABLE. (2) Insomnia Current Visit: Yes Status: Acute Plan: HE WANTED MEDS. I GAVE HIM ATIVAN BUT HE DID NOT SLEEP. HE SAYS HE DOES NOT DRINK AT ALL. I WILL GIVE IM 1 MG OF ATIVAN TONIGHT DC IN AM POSSIBLE.
[2019-04-09 18:28] LABS: Urine Blood 2+ (NEG); Urine Glucose NEGATIVE (NEG); Urine Protein 2+ (NEG); Urine Specific Gravity >1.030 (1.005-1.030)
[2019-04-09] MEDS: LORazepam 2 MG/ML VIAL IV PRN (19:32)
[2019-04-10] MEDS: METRONIDAZOLE 500mg IVPB 500 MG/100 ML BAG IV SCH ×4 (00:39→17:12)
[2019-04-10] MEDS: METOPROLOL TARTRATE 5 MG/5 ML INJ IV SCH ×3 (05:52→17:13)
[2019-04-10] MEDS: ENOXAPARIN 40 MG/0.4 ML SQ SCH (08:16)
[2019-04-10] MEDS: PANTOPRAZOLE 40 MG INJ IVP SCH (08:16)
[2019-04-10] MEDS: CIPROFLOXACIN 400mg IV 400 MG/200 ML BAG IV SCH ×2 (08:17→20:12)
[2019-04-10] MEDS: NS KCL 20MEQ 20 MEQ/1,000 ML BAG IV SCH ×2 (08:18→20:40)
[2019-04-10 09:14] LABS: BUN Blood Urea Nitrogen 17 mg/dL (7-18); Bicarbonate 27 mmol/L (21-32); Glucose Level 118 mg/dL (74-106); Magnesium 2.5 mg/dL (1.8-2.4); Phosphorus 3.1 mg/dL (2.5-4.9); Potassium 3.7 mmol/L (3.5-5.1); Sodium Level 140 mmol/L (136-145)
--- NOTE | 2019-04-10 09:58 | PN ---
Date of Progress Note: 04/10/2019 Subjective: Patient is awake, alert. Has a little bit of gas in his colostomy. Drinking water when he is not supposed to be, supposed to be taking ice chips, but he has been drinking a lot, therefore his NG tube output is significant, but it is mostly water that is coming out, it was 1300 mL last sh ift. His JUSTEN drain is only putting out 5. Urine output is adequate. His wound is clean, dry, and in tact. Abdomen is slightly distended. Hypoactive bowel sounds. Mucosa is pink, however, still a lit tle edematous, and there is some air in the colostomy bag. Assessment: Status post Diaz's procedure. Plan: We will continue NG tube and IV fluids and IV antibiotics today. We will encourage ambulation , incentive spirometry. Please note, patient did have a CT chest and angio, because he was tachycard ic and PE was ruled out. Patient is clinically improving slowly. Hopefully, we can begin diet cristina DOSHI/BONY Voice ID: [id number] Report ID: [id number]
[2019-04-10] MEDS ORDERED: CLOTRIMAZ/BETAMETH CREAM 15GM TOP PRN (12:10)
--- NOTE | 2019-04-10 19:00 | P.PN ---
Subjective Date of Service: 04/10/19 Chief Complaint: SP SURGERY Subjective: Improving HE IS PASSING SOME GAS. NO BM YET. HE IS NOT ANGRY ANY LONGER. Review of Systems 10-point ROS is otherwise unremarkable General: Weakness Gastrointestinal: Distention Physical Examination - Vital Signs Temperature: 97.1 F Blood Pressure: 125/76 Pulse: 87 Respirations: 17 Pulse Ox (%): 96 - Physical Exam General: Mild distress HEENT: Atraumatic, PERRLA, EOMI Neck: Supple, JVD not distended Respiratory: Clear to auscultation bilaterally, Normal air movement Cardiovascular: Regular rate/rhythm, Normal S1 S2 Gastrointestinal: Normal bowel sounds, No tenderness, Tenderness (POST OP. HE HAS COLOSTOMY BAG WITH GAS .) Musculoskeletal: No tenderness Integumentary: No rashes Neurological: Normal speech, Normal tone, Normal affect Lymphatics: No axilla or inguinal lymphadenopathy - Studies Medications List Reviewed: Yes Assessment And Plan - Current Problems (Diagnosis) (1) Rupture of colon Current Visit: Yes Status: Acute Plan: FROM DIVERTICULTIS. IV ABX. SP PARTIAL COLECTOMY. HE WILL STOP ALL SEEDS. STABLE. POST OP DAY 1. STABLE. POST OP STATUS. BOWELS HAVE NOT MOVED YET. NGT CONTINUE. HAS COLOSTOMY BAG WITH GAS IN IT. (2) Insomnia Current Visit: Yes Status: Acute Plan: HE WANTED MEDS. I GAVE HIM ATIVAN BUT HE DID NOT SLEEP. HE SAYS HE DOES NOT DRINK AT ALL. I WILL GIVE IM 1 MG OF ATIVAN TONIGHT DC IN AM POSSIBLE. (3) Sinus tachycardia Current Visit: Yes Status: Acute Plan: ASYMPTOMATIC. NO SIGNS OF SEPSIS, CHF, ETC. CT ANGIO NEGATIVE. LOPRESSOR QID STARTED WHILE NPO.
[2019-04-10] MEDS: HYDROMORPHONE/PCA 10 MG/50 ML SYR IV PRN (19:17)
[2019-04-10] MEDS: LORazepam 2 MG/ML VIAL IV PRN (20:12)
[2019-04-11] MEDS: METRONIDAZOLE 500mg IVPB 500 MG/100 ML BAG IV SCH ×5 (00:10→23:55)
[2019-04-11] MEDS: METOPROLOL TARTRATE 5 MG/5 ML INJ IV SCH ×5 (00:10→23:55)
[2019-04-11] MEDS: NS KCL 20MEQ 20 MEQ/1,000 ML BAG IV SCH ×2 (05:40→23:20)
[2019-04-11 06:14] LABS: Absolute Lymphocytes (CBC) 1.3 K/uL (0.7-4.9); Basophils % 0.2 % (0-1.3); Hematocrit 34.4 % (39.6-49.0); Lymphocytes % 9.2 % (15.3-44.8); RBC Red Blood Cell Count 3.72 M/uL (4.33-5.43)
[2019-04-11 06:17] LABS: BUN Blood Urea Nitrogen 13 mg/dL (7-18); Bicarbonate 26 mmol/L (21-32); Glucose Level 102 mg/dL (74-106); Magnesium 2.3 mg/dL (1.8-2.4); Potassium 3.8 mmol/L (3.5-5.1); Sodium Level 141 mmol/L (136-145)
[2019-04-11] MEDS: ENOXAPARIN 40 MG/0.4 ML SQ SCH (08:21)
[2019-04-11] MEDS: CIPROFLOXACIN 400mg IV 400 MG/200 ML BAG IV SCH ×2 (08:21→20:20)
[2019-04-11] MEDS: PANTOPRAZOLE 40 MG INJ IVP SCH (08:21)
--- NOTE | 2019-04-11 09:47 | PN ---
Date of Progress Note: 04/11/2019 Subjective: Patient is awake, alert. No complaint. Vital signs stable. Afebrile. Still has a lit tle bit of leukocytosis, left shift, however, is improving. Abdomen is soft. Positive bowel sounds. There is air in the ostomy bag. Mucosa is healthy. Assessment: Status post Diaz's procedure. Plan: We will clamp the NG tube. Start him on clear liquids. Continue IV antibiotics. Encourage a mbulation, incentive spirometry. /MODL Voice ID: [id number] Report ID: [id number]
--- NOTE | 2019-04-11 10:30 | P.PN ---
Subjective Date of Service: 04/11/19 Chief Complaint: SP SURGERY Subjective: Improving HE IS PASSING SOME GAS. NO BM YET. HE IS NOT ANGRY ANY LONGER. HE IS HAVING BM IN THE BAG NOW. STABLE. Review of Systems 10-point ROS is otherwise unremarkable Physical Examination - Vital Signs Temperature: 97.4 F Blood Pressure: 128/71 Pulse: 84 Respirations: 16 Pulse Ox (%): 97 - Physical Exam General: Alert, Obese HEENT: Atraumatic, PERRLA, EOMI Neck: Supple, JVD not distended Respiratory: Clear to auscultation bilaterally, Normal air movement Cardiovascular: Regular rate/rhythm, Normal S1 S2 Gastrointestinal: Normal bowel sounds, Soft and benign, Other (COLOSTOMY BAG IN PLACE.) Musculoskeletal: No tenderness Integumentary: No rashes Neurological: Normal speech, Normal tone, Normal affect Lymphatics: No axilla or inguinal lymphadenopathy - Studies Medications List Reviewed: Yes Assessment And Plan - Current Problems (Diagnosis) (1) Rupture of colon Current Visit: Yes Status: Acute Plan: FROM DIVERTICULTIS. IV ABX. SP PARTIAL COLECTOMY. HE WILL STOP ALL SEEDS. STABLE. POST OP DAY 1. STABLE. POST OP STATUS. BOWELS HAVE NOT MOVED YET. NGT CONTINUE. HAS COLOSTOMY BAG WITH GAS IN IT. STARTING TO HAVE BM. DOING A LOT BETTER. (2) Insomnia Current Visit: Yes Status: Acute Plan: HE WANTED MEDS. I GAVE HIM ATIVAN BUT HE DID NOT SLEEP. HE SAYS HE DOES NOT DRINK AT ALL. I WILL GIVE IM 1 MG OF ATIVAN TONIGHT DC IN AM POSSIBLE. (3) Sinus tachycardia Current Visit: Yes Status: Acute Plan: ASYMPTOMATIC. NO SIGNS OF SEPSIS, CHF, ETC. CT ANGIO NEGATIVE. LOPRESSOR QID STARTED WHILE NPO.
[2019-04-11] MEDS: LORazepam 2 MG/ML VIAL IV PRN (20:21)
[2019-04-11] MEDS: HYDROMORPHONE/PCA 10 MG/50 ML SYR IV PRN (20:26)
[2019-04-12] MEDS: METRONIDAZOLE 500mg IVPB 500 MG/100 ML BAG IV SCH ×4 (05:49→23:58)
[2019-04-12] MEDS: METOPROLOL TARTRATE 5 MG/5 ML INJ IV SCH ×2 (05:50→11:00)
[2019-04-12 06:20] LABS: Absolute Lymphocytes (CBC) 1.2 K/uL (0.7-4.9); Basophils % 0.2 % (0-1.3); Hematocrit 33.9 % (39.6-49.0); Lymphocytes % 10.1 % (15.3-44.8); MPV 7.1 fL (7.6-11.3); RBC Red Blood Cell Count 3.72 M/uL (4.33-5.43)
[2019-04-12] MEDS: PANTOPRAZOLE 40 MG INJ IVP SCH (07:41)
[2019-04-12] MEDS: ENOXAPARIN 40 MG/0.4 ML SQ SCH (07:41)
[2019-04-12] MEDS: CIPROFLOXACIN 400mg IV 400 MG/200 ML BAG IV SCH ×2 (07:41→20:25)
--- NOTE | 2019-04-12 11:53 | P.PN ---
Subjective Date of Service: 04/12/19 Chief Complaint: SP SURGERY Subjective: Improving HE IS PASSING SOME GAS. NO BM YET. HE IS NOT ANGRY ANY LONGER. HE IS HAVING BM IN THE BAG NOW. STABLE. WALKING WELL, NO PAIN, IS NOW ON FULL AND THEN SOLID FOOD THIS PM. Review of Systems 10-point ROS is otherwise unremarkable Physical Examination - Vital Signs Temperature: 98.5 F Blood Pressure: 122/69 Pulse: 83 Respirations: 18 Pulse Ox (%): 97 - Physical Exam General: Alert, Mild distress, Obese HEENT: Atraumatic, PERRLA, EOMI Neck: Supple, JVD not distended Respiratory: Clear to auscultation bilaterally, Normal air movement Cardiovascular: Regular rate/rhythm, Normal S1 S2 Gastrointestinal: Normal bowel sounds, No tenderness Musculoskeletal: No tenderness Integumentary: No rashes Neurological: Normal speech, Normal tone, Normal affect Lymphatics: No axilla or inguinal lymphadenopathy - Studies Medications List Reviewed: Yes Assessment And Plan - Current Problems (Diagnosis) (1) Rupture of colon Current Visit: Yes Status: Acute Plan: FROM DIVERTICULTIS. IV ABX. SP PARTIAL COLECTOMY. HE WILL STOP ALL SEEDS. STABLE. POST OP DAY 1. STABLE. POST OP STATUS. BOWELS HAVE NOT MOVED YET. NGT CONTINUE. HAS COLOSTOMY BAG WITH GAS IN IT. STARTING TO HAVE BM. DOING A LOT BETTER. ADVANCED DIET BY DR. HORTON. DC IN AM POSSIBLE. (2) Insomnia Current Visit: Yes Status: Acute Plan: HE WANTED MEDS. I GAVE HIM ATIVAN BUT HE DID NOT SLEEP. HE SAYS HE DOES NOT DRINK AT ALL. I WILL GIVE IM 1 MG OF ATIVAN JAVED DC IN AM POSSIBLE. (3) Sinus tachycardia Current Visit: Yes Status: Acute Plan: ASYMPTOMATIC. NO SIGNS OF SEPSIS, CHF, ETC. CT ANGIO NEGATIVE. LOPRESSOR QID STARTED WHILE NPO.
[2019-04-12] MEDS: NS KCL 20MEQ 20 MEQ/1,000 ML BAG IV SCH (12:40)
--- NOTE | 2019-04-12 12:47 | PN ---
Date of Progress Note: 04/12/2019 Subjective: Patient is awake, alert, tolerating clear liquids. His NG tube was removed yesterday. His vital signs are stable. He is afebrile. White count is down to 11.8. His abdomen is benign. T here is stool in the colostomy. Mucosa is pink. Abdomen is benign. Assessment: Status post Diaz's procedure. Plan: Continue IV antibiotics. We will advance his diet to full liquids for lunch and low-fiber GI soft for dinner. Hopefully, home in a day or 2, and he will go home on oral antibiotics for 2 weeks, follow up with me in the office, and then he will need a colonoscopy and a reversal in 3 months. Al so he needs a dietary consultation. GLENDA/BONY Voice ID: [id number] Report ID: [id number]
[2019-04-12] MEDS ORDERED: NS KCL 20MEQ 20 MEQ/1,000 ML BAG IV SCH (18:00)
[2019-04-12] MEDS: LORazepam 2 MG/ML VIAL IV PRN (20:26)
[2019-04-12] MEDS: HYDROMORPHONE/PCA 10 MG/50 ML SYR IV PRN (20:26)
[2019-04-13] MEDS: METRONIDAZOLE 500mg IVPB 500 MG/100 ML BAG IV SCH ×2 (05:35→13:07)
[2019-04-13 06:05] LABS: Absolute Lymphocytes (CBC) 1.2 K/uL (0.7-4.9); Basophils % 0.4 % (0-1.3); Hematocrit 34.9 % (39.6-49.0); Lymphocytes % 12.1 % (15.3-44.8); MPV 7.1 fL (7.6-11.3); RBC Red Blood Cell Count 3.82 M/uL (4.33-5.43)
[2019-04-13] MEDS: CIPROFLOXACIN 400mg IV 400 MG/200 ML BAG IV SCH (09:25)
[2019-04-13] MEDS: PANTOPRAZOLE 40 MG INJ IVP SCH (09:26)
[2019-04-13] MEDS: ENOXAPARIN 40 MG/0.4 ML SQ SCH (09:26)
[2019-04-13] MEDS: HYDROMORPHONE HCL 1 MG/ML INJ IV PRN (16:31)
--- NOTE | 2019-04-13 17:51 | P.DS ---
Admission Date: 04/07/19 Discharge Date: 04/13/19 Disposition: ROUTINE DISCHARGE Discharge Condition: FAIR Reason for Admission: SP SURGERY - Problems (1) Rupture of colon Current Visit: Yes Status: Acute (2) Insomnia Current Visit: Yes Status: Acute (3) Sinus tachycardia Current Visit: Yes Status: Acute Brief History of Present Illness: MR. MÁRQUEZ HAS HAD DIVERTICULITIS ABOUT 10 YEARS AGO. HE DOES NOT FOLLOW DIET OF NOT EATING SEEDS. HE COMES WITH ACUTE VANESSA IN 4 DAYS. HE HAD LARGE PHLEGMON WITH RUPTURED DIVERTICUAR INFECTION. DR. CHAMPION DID EMERGENT SURGERY. HE HAD TO DO PARTIAL COLECTOMY. I COULD NOT SEE HIM LAST PM WHEN I CAME HE WAS IN SURGERY. I SAW HIM THIS AM. MR. MÁRQUEZ IS DOING GREAT NOW. HE HAS IMPROVED. HE HAS COLOSTOMY WITH BM IN THERE. HE IS ABLE TOLERATE DIET. HE IS STABLE FOR DC. Vital Signs/Physical Exam: Temp Pulse Resp BP Pulse Ox 97.6 F 89 18 107/55 L 97 04/13/19 16:00 04/13/19 16:00 04/13/19 16:31 04/13/19 16:00 04/13/19 16:31 Laboratory Data at Discharge: WBC 10.3 K/uL (4.3-10.9) 04/13/19 05:44 Hgb 12.2 g/dL (13.6-17.9) L 04/13/19 05:44 Hct 34.9 % (39.6-49.0) L 04/13/19 05:44 Plt Count 395 K/uL (152-406) 04/13/19 05:44 PT 15.6 SECONDS (9.5-12.5) H 04/07/19 13:00 INR 1.34 04/07/19 13:00 Sodium 141 mmol/L (136-145) 04/11/19 05:34 Potassium 3.8 mmol/L (3.5-5.1) 04/11/19 05:34 BUN 13 mg/dL (7-18) 04/11/19 05:34 Creatinine 0.72 mg/dL (0.55-1.3) 04/11/19 05:34 Glucose 102 mg/dL (74-106) 04/11/19 05:34 Phosphorus 3.1 mg/dL (2.5-4.9) D 04/10/19 08:45 Magnesium 2.3 mg/dL (1.8-2.4) 04/11/19 05:34 Total Bilirubin 0.7 mg/dL (0.2-1.0) 04/08/19 04:38 AST 17 U/L (15-37) 04/08/19 04:38 ALT 39 U/L (12-78) 04/08/19 04:38 Alkaline Phosphatase 62 U/L (45-117) 04/08/19 04:38 Lipase 142 U/L (73-393) 04/08/19 04:38 Home Medications: NK [No Home Meds] 04/07/19 Diet: low fiber GI soft Activity: No lifting more than 10 lbs Followup: Paramjit Mena MD [ACTIVE - CAN ADMIT] - Faustino Terrell MD [ACTIVE - CAN ADMIT] - 04/23/19
--- NOTE | 2019-04-13 20:37 | PN ---
Date of Progress Note: 04/13/2019 Subjective: Patient is awake, alert, tolerating regular diet. Vital signs are stable, afebrile. Am bulating. Pain controlled with p.o. pain medication. Abdomen is benign. JUSTEN with minimal output. O stomy is working well. Assessment: Status post Diaz's procedure. Recommendation: Patient cleared for discharge from surgery standpoint. The patient will be on Cipro and Flagyl for 2 weeks. Tylenol #3 for pain. I will get home health for ostomy care and supplies. Dietitian consultation for dietary modification and follow up in my office in about 10 days. Patien t may shower and discontinue every other staple. /MODL Voice ID: [id number] Report ID: [id number]
== END 2019-04-13 18:14 | disposition home health service (06) | DRG 331 ==
LOC: ER 12:32 → ERHOLD 13:39 → 3RD-ICU 15:42 → 2ND 04-09 13:18
PROVIDERS: ADMIT Internal Medicine; ATTEND Internal Medicine
PROC: 0D1N0Z4 Bypass Sigmoid Colon to Cutaneous, Open Approach (ICD-10-PCS; 2019-04-07)
PROC: 0DBN0ZZ Excision of Sigmoid Colon, Open Approach (ICD-10-PCS; principal; 2019-04-07 15:00)
DX: K57.20 Diverticulitis of large intestine with perforation and abscess without bleeding (principal); F17.290 Nicotine dependence, other tobacco product, uncomplicated; E66.9 Obesity, unspecified; Z68.35 Body mass index [BMI] 35.0-35.9, adult; G47.00 Insomnia, unspecified; R00.0 Tachycardia, unspecified
CPT/HCPCS: 36415; 71045; 71275; 74176; 80048; 80076; 81003; 83605; 83690; 83735; 83880; 84100; 84145; 84484; 85025; 85379; 85610; 86850; 86900; 86901; 87040; 87045; 87046; 88305; 88307; 89055; 93005; 96365; 96367; 96368; 96375; 97116; 97161; 97530; 99285; C9113; J0330; J0696; J0744; J1100; J1170; J1650; J2250; J2310; J2370; J2405; J2704; J2710; J3010; J7030; Q9967

== ENCOUNTER → 2019-07-02 | Day surgery (SDC) | payer OTHER ==
[~2019-07-02] MED LIST: LIDOCAINE 1% MPF 30 ML VIAL ONE; PROPOFOL 200 MG/20 ML VIAL IV ONE; Ringers Lactate 1,000 ML IV ONE
[2019-07-02 06:46] LABS: Absolute Lymphocytes (CBC) 1.5 K/uL (0.7-4.9); Basophils % 0.1 % (0-1.3); Hematocrit 46.5 % (39.6-49.0); Lymphocytes % 18.7 % (15.3-44.8); MPV 7.5 fL (7.6-11.3); RBC Red Blood Cell Count 5.17 M/uL (4.33-5.43)
--- NOTE | 2019-07-02 07:54 | ENDO RPT ---
[address], [address] COLONOSCOPY PROCEDURE REPORT EXAM DATE: 07/02/2019 PATIENT NAME: Timmy Ji MR #: [id number] BIRTHDATE: 1975 ATTENDING: Faustino Terrell M.D. STATUS: outpatient METER TECHNICIAN: Flori Thakkar RN, Ashley Yu, and Melvina Dodd RN INDICATIONS: The patient is a 44 yr old Male here for a colonoscopy due to diverticulitis, colon cancer screening, and colon cancer screening PROCEDURE PERFORMED: Colonoscopy MEDICATIONS: Per Anesthesia. ESTIMATED BLOOD LOSS: None CONSENT: The patient understands the risks and benefits of the procedure and understands that these risks include, but are not limited to: sedation, allergic reaction, infection, perforation and/or bleeding. Alternative means of evaluation and treatment include, among others: physical exam, x-rays, and/or surgical intervention. The patient elects to proceed with this endoscopic procedure. DESCRIPTION OF PROCEDURE: During intra-op preparation period all mechanical medical equipment was checked for proper function. Hand hygiene and appropriate measures for infection prevention was taken. Procedure, possible complications, alternatives including, but not limited to possibility of bleeding, perforation, tear, infection, sepsis, need for surgery, need for blood transfusion, were explained to the patient. After the risks, benefits and alternatives of the procedure were thoroughly explained, Informed consent was verified, confirmed and timeout was successfully executed by the treatment team. The patient was placed in the left lateral position. A digital rectal exam was performed and revealed an enlarged prostate. After appropriate level of anesthesia, the scope was passed. The EC-[id number] ([id number]) endoscope was introduced through the anus and advanced to the cecum, which was identified by the ileocecal valve. The quality of the prep was good. The instrument was then slowly withdrawn as the colon was fully examined. Scope withdrawal time was 15 minutes. COLON FINDINGS: A normal appearing cecum, ileocecal valve, and appendiceal orifice were identified. the ascending, transverse, descending, sigmoid colon, and rectum appeared unremarkable. Retroflexed views revealed no abnormalities. The scope was then completely withdrawn from the patient and the procedure terminated. ADVERSE EVENTS: There were no complications. IMPRESSIONS: A normal appearing cecum, ileocecal valve, and appendiceal orifice were identified. the ascending, transverse, descending, sigmoid colon, and rectum appeared unremarkable RECOMMENDATIONS: follow-up: office 1 week(s) RECALL: Return in 10 year(s) for Colonoscopy. Faustino Terrell M.D. eSigned: Faustino Terrell M.D. 07/02/2019 7:54 AM cc: CPT CODES: ICD9 CODES: 600.0 Hypertrophy (benign) of prostate PATIENT NAME: Timmy Ji MR#: [id number]
[2019-07-02 08:26] VITALS: BP 113/88; TEMP 97.9; O2SAT 95
== END | disposition home or self-care (01) ==
LOC: OR 06:21
PROVIDERS: ATTEND Surgery
PROC: 0DJD8ZZ Inspection of Lower Intestinal Tract, Via Natural or Artificial Opening Endoscopic (ICD-10-PCS; principal; 2019-07-02 07:30)
DX: Z09 Encounter for follow-up examination after completed treatment for conditions other than malignant neoplasm (principal); Z90.49 Acquired absence of other specified parts of digestive tract
CPT/HCPCS: 45378; 85025; 80048; 36415; J2704 ×2; J7120

== ENCOUNTER 2019-07-06 07:26 | Inpatient (IN) | payer OTHER ==
[2019-07-06] MEDS ORDERED: Ringers Lactate 1,000 ML IV ONE ×3 (07:51→12:12)
[2019-07-06] MEDS ORDERED: CEFOXITIN/SWI 1gm 1 GM/10 ML SYR ONE (07:52)
[2019-07-06] MEDS ORDERED: METRONIDAZOLE 500mg IVPB 500 MG/100 ML BAG IV ONE (07:52)
[2019-07-06] MEDS ORDERED: FENTANYL CITR 100 MCG/2 ML ONE ×2 (08:17→13:34)
[2019-07-06] MEDS ORDERED: ROCURONIUM 50 MG/5 ML VIAL IV ONE ×3 (08:17→10:16)
[2019-07-06] MEDS ORDERED: MIDAZOLAM HCL 2 MG/2 ML INJ ONE (08:17)
[2019-07-06] MEDS ORDERED: PROPOFOL 200 MG/20 ML VIAL IV ONE (08:17)
[2019-07-06] MEDS ORDERED: LIDOCAINE 1% MPF 5 ML VIAL ONE (08:17)
[2019-07-06] MEDS ORDERED: FENTANYL CITR 250 MCG/5 ML ONE ×2 (09:07→10:27)
[2019-07-06] MEDS ORDERED: GLYCOPYRROLATE 0.2 MG/ML SYR ONE (11:43)
[2019-07-06] MEDS ORDERED: NEOSTIGMINE 1 MG/ML -5 ML ONE (11:44)
[2019-07-06] MEDS ORDERED: ONDANSETRON 4 MG/2 ML VIAL ONE (11:44)
[2019-07-06] MEDS ORDERED: KETOROLAC 30 MG/ML INJ ONE (11:45)
[2019-07-06] MEDS: HYDROMORPHONE HCL 1 MG/ML INJ ONE ×6 (12:46→13:23)
[2019-07-06] MEDS: MEPERIDINE HCL 25 MG/0.5 ML ONE ×2 (12:48→12:58)
[2019-07-06] MEDS ORDERED: PROMETHAZINE 25 MG/ML VIAL ONE (13:33)
[2019-07-06] MEDS ORDERED: MEPERIDINE HCL 25 MG/0.5 ML ONE (13:34)
[2019-07-06] MEDS ORDERED: MEPERIDINE HCL 50 MG/ML ONE (13:34)
[2019-07-06] MEDS ORDERED: ONDANSETRON 4 MG/2 ML VIAL IV PRN (13:58)
[2019-07-06] MEDS ORDERED: NA CHLORIDE 0.9% 1,000 ML ONE (14:37)
[2019-07-06] MEDS: HYDROMORPHONE/PCA 0 / ML SYR IV PRN (15:20)
[2019-07-06] MEDS: D5.45NS W/KCL 20MEQ 1,000 ML IV SCH (15:48)
[2019-07-06] MEDS: CEFOXITIN/SWI 1gm 1 GM/10 ML SYR IV SCH ×2 (16:01→19:15)
[2019-07-06] MEDS: METRONIDAZOLE 500mg IVPB 500 MG/100 ML BAG IV SCH ×2 (17:29→23:31)
[2019-07-06] MEDS ORDERED: NA CHLORIDE 0.9% 500 ML IV ONE ×2 (18:19→20:10)
[2019-07-06] MEDS: NA CHLORIDE 0.9% 500 ML ONE ×2 (18:20)
[2019-07-06] MEDS: HYDROMORPHONE HCL 1 MG/ML INJ IV PRN (22:21)
--- NOTE | 2019-07-07 00:07 | OP ---
Date of Procedure: 07/06/2019 Surgeon: Faustino Terrell MD College Athlete: ROSE Newton. Preoperative Diagnosis: Perforated diverticulitis with abscess status post Diaz's procedure. Postoperative Diagnosis: Perforated diverticulitis with abscess status post Diaz's procedure. Procedure Performed: Diagnostic laparoscopy, exploratory laparotomy, lysis of adhesions, and reversa l of colostomy. Intraoperative Consultation: Percy Hernandez M.D. Estimated Blood Loss: Minimal. Specimen: Sigmoid colostomy. Findings: As above. Anesthesia: General. Complications: None. Drains: JUSTEN #10 flat. Disposition: The patient tolerated the procedure in stable condition, taken to Recovery in good gene ral condition Procedure In Detail: Patient was brought to the OR and placed in supine position. General anesthesi a was begun. The patient was prepped and draped in usual sterile fashion. The colostomy was closed with running 2-0 silk interlocking suture in a sterile fashion. This was covered up and then the david gnostic laparoscopy portion of the case began with a 1 cm left upper quadrant incision. Subcutaneous tissue was divided. The fascia was identified and divided. A #1 Vicryl stay suture was placed. Pe ritoneal cavity was entered with sharp and blunt dissection. A 12 mm trocar was placed into the soledad toneal cavity under direct vision. Pneumoperitoneum was established and then a 5 mm trocar placed in the right upper quadrant. Laparoscopy revealed extensive adhesions to the midline omental in nature was taken down with ligature until complete freedom was obtained where the midline incision was. Th ere was a lot of scar tissues in the pelvis and in the left lower quadrant and this was as expected a nd at this time, I decided to convert to an open procedure. Generous midline incision over the previ ous incision was made. Subcutaneous tissue divided. The fascia identified and divided. Peritoneal cavity was entered. Then extensive lysis of adhesion was performed in the pelvis to free up the rect um, but it was scarred in from the previous abscess and infection the patient had. The stump was amandeep ntified and it was very viable, but it was somewhat thickened. The colostomy was taken down in a sta ndard fashion and down through the fascia and brought in and the end of the colostomy was excised and sent to Pathology. Good ends were made and this was sized with the pursestring incisor, it was 29 m m, EEA of 29 mm was placed. Through the rectum, a small opening remained on the posterior right late ral aspect and this was visualized with an insufflation of air in a pool of saline, and at this time I decided to try to revise this, anastomosis was divided with the contour staple and then another jane stomosis of 29 mm was attempted. At this time the hole was smaller, but it was still there. Dr. Eliane kitchen is consulted, he agreed that we should try to pass this with sutures and put omental patching o n it after the closure with a suture and a drain and that is what was done. A 3-0 silk [id number] [id number] x3 sutures were done used to close the defect with closure of the hole on the anastomotic site in the posterior right lateral aspect. A complete coverage was made. There was no further leakage appr eciated. Omentum was loosened and brought into the pelvis with ligature to help provided enough iris th and then AmnioFill was used as well around the anastomosis. Jun Chavez drain #10 flat was plac ed and secured with 3-0 nylon. Peritoneal surface on the colostomy site was closed with #1 Prolene. Colostomy site wound was irrigated. The fascia was closed with #1 Prolene and then #2 nylon was use d to close the midline fascia. AmnioFill was placed in both wounds. Wound was irrigated. Bleeding controlled with cautery prior to that. Then 3-0 chromic was used to approximate the subcutaneous tis minerva and aleta used to close the skin and the laparoscopic wounds were closed in standard fashion by joining the stay sutures to each other and then aleta to close the skin. Sterile dressing was applied. Patient was awakened and taken to Recovery in good general condition. /MODL Voice ID: [id number] Report ID: [id number]
[2019-07-07] MEDS: D5.45NS W/KCL 20MEQ 1,000 ML IV SCH ×4 (02:12→23:20)
[2019-07-07] MEDS: CEFOXITIN/SWI 1gm 1 GM/10 ML SYR IV SCH ×4 (02:14→19:32)
[2019-07-07] MEDS: HYDROMORPHONE HCL 1 MG/ML INJ IV PRN ×4 (02:23→21:20)
[2019-07-07] MEDS: METRONIDAZOLE 500mg IVPB 500 MG/100 ML BAG IV SCH ×4 (05:36→23:20)
[2019-07-07 06:20] LABS: Magnesium 1.9 mg/dL (1.8-2.4); Phosphorus 2.4 mg/dL (2.5-4.9); Potassium 4.3 mmol/L (3.5-5.1)
[2019-07-07 06:22] LABS: Absolute Lymphocytes (CBC) 0.9 K/uL (0.7-4.9); Basophils % 0.1 % (0-1.3); Hematocrit 39.6 % (39.6-49.0); Lymphocytes % 6.2 % (15.3-44.8); MPV 7.5 fL (7.6-11.3); RBC Red Blood Cell Count 4.36 M/uL (4.33-5.43)
[2019-07-07] MEDS: ENOXAPARIN 40 MG/0.4 ML SQ SCH (07:46)
[2019-07-07] MEDS: SODIUM CHLORIDE 0.9% 10ML INJ IV SCH (07:47)
[2019-07-07] MEDS: PANTOPRAZOLE 40 MG INJ IV SCH (07:47)
[2019-07-07 08:18] LABS: Blood Morphology Comment NOT SEEN (NOT SEEN); Platelet Estimate ADEQ
[2019-07-07] MEDS ORDERED: PANTOPRAZOLE 40 MG INJ IV SCH (09:00)
[2019-07-07] MEDS ORDERED: SODIUM CHLORIDE 0.9% 10ML INJ IV SCH (09:00)
[2019-07-07] MEDS: HYDROMORPHONE/PCA 0 / ML SYR IV PRN ×2 (09:10→21:57)
--- NOTE | 2019-07-07 12:28 | P.OP ---
Billing Clerk: Germain ROSE Preoperative diagnosis: Acute Cholecystitis and Cholelithiasis Postoperative diagnosis: same Primary procedure: Lap Tiffanie Anesthesia: General Estimated blood loss: min Specimen: GB Findings: as above Complications: None Transferred to: Recovery Room Condition: Good
--- NOTE | 2019-07-07 14:59 | PN ---
Date of Progress Note: 07/07/2019 Subjective: Patient is awake, alert, complaining of incisional pain, requiring breakthrough Dilaudid . Vitals are stable. Slightly elevated heart rate, which was similar to his last admission. He is afebrile. JUSTEN has serosanguineous drainage. NG tube is putting out bilious material. Urine output i s adequate. Laboratory data reviewed. White count is slightly elevated. H and H are stable. Abdom en is benign. Dressing is clean, dry, and intact. Hypoactive bowel sounds. Assessment: Status post reversal of colostomy. Recommendations: Continue n.p.o., NG tube, IV fluid, IV antibiotics, Miller. Continue ICU monitoring as patient has not made out of bed yet. We will let physical therapy work with him today. If he mo bilizes more, then hopefully we can get him to the floor tomorrow. We will check his electrolytes, a djust them per protocol. Encourage ambulation, incentive spirometry. Patient clinically stable. /MODL Voice ID: [id number] Report ID: [id number]
[2019-07-08] MEDS: CEFOXITIN/SWI 1gm 1 GM/10 ML SYR IV SCH ×4 (01:10→19:30)
[2019-07-08] MEDS: HYDROMORPHONE HCL 1 MG/ML INJ IV PRN ×2 (03:52→14:52)
[2019-07-08 05:09] LABS: Absolute Lymphocytes (CBC) 1.4 K/uL (0.7-4.9); Basophils % 0.2 % (0-1.3); Hematocrit 35.3 % (39.6-49.0); Lymphocytes % 8.4 % (15.3-44.8); MPV 7.7 fL (7.6-11.3); RBC Red Blood Cell Count 3.85 M/uL (4.33-5.43)
[2019-07-08 05:32] LABS: Phosphorus 1.3 mg/dL (2.5-4.9)
[2019-07-08] MEDS ORDERED: POTASSIUM PHOS IN 0.9 % NACL 15 MMOL/250 ML BAG IV ONE (05:34)
[2019-07-08] MEDS: METRONIDAZOLE 500mg IVPB 500 MG/100 ML BAG IV SCH ×3 (05:37→17:40)
[2019-07-08 06:57] VITALS: BMI 33.5
[2019-07-08] MEDS: D5.45NS W/KCL 20MEQ 1,000 ML IV SCH ×2 (07:02→17:40)
[2019-07-08] MEDS: SODIUM CHLORIDE 0.9% 10ML INJ IV SCH (08:39)
[2019-07-08] MEDS: ENOXAPARIN 40 MG/0.4 ML SQ SCH (08:41)
[2019-07-08] MEDS: PANTOPRAZOLE 40 MG INJ IV SCH (08:41)
[2019-07-08] MEDS: HYDROMORPHONE/PCA 0 / ML SYR IV PRN (10:57)
[2019-07-08] MEDS: ACETAMINOPHEN 160 MG/5 ML UCUP PO PRN (15:29)
[2019-07-08] MEDS: LORazepam 2 MG/ML VIAL IV PRN (20:00)
--- NOTE | 2019-07-08 21:03 | PN ---
Date of Progress Note: 07/08/2019 Subjective: Patient is awake, alert, complaining of a headache. He has had some low-grade temperatu res of 100.0. He has passed a small amount of gas. There is no abdominal pain. His vitals are stab le. He is afebrile. His catheter put out is 550, gastric drainage put out 1150, however he is takin g quite a bit of ice chips. On JUSTEN put out 15 mL last shift with serosanguineous fluid. Laboratory Data: His white count is slightly elevated at 16.5, however the left shift is improving. Neutrophil percentage is down to 82.2 from 85.5. His chemistry reviewed. Electrolytes were checked and being replaced. Objective: His abdomen is soft, nondistended, hypoactive bowel sounds. Wound is clean, dry, and int act. Assessment: Status post exploratory laparotomy, reversal of sigmoid colostomy. Recommendations: Continue present care as patient is having low-grade fever, I would prefer to watch him in the ICU 1 more time to make sure we do not miss any obvious signs of fever that he is having most likely due to atelectasis, and we encouraged him to use the incentive spirometry, ambulate. y sical therapy is working with the patient. We will continue the IV antibiotics. We will continue th e drain at this time as well as the Miller because the bladder was near the anastomosis and I do not w ant to put extra stress on the anastomosis with the distended bladder. /MODL Voice ID: [id number] Report ID: [id number]
[2019-07-09] MEDS: METRONIDAZOLE 500mg IVPB 500 MG/100 ML BAG IV SCH ×4 (00:05→17:00)
[2019-07-09] MEDS: CEFOXITIN/SWI 1gm 1 GM/10 ML SYR IV SCH ×4 (01:30→18:32)
[2019-07-09] MEDS: D5.45NS W/KCL 20MEQ 1,000 ML IV SCH ×3 (03:29→15:00)
[2019-07-09] MEDS: HYDROMORPHONE/PCA 0 / ML SYR IV PRN ×2 (04:08→19:18)
[2019-07-09] MEDS: HYDROMORPHONE HCL 1 MG/ML INJ IV PRN ×2 (04:18→14:16)
[2019-07-09 05:15] LABS: Absolute Lymphocytes (CBC) 1.2 K/uL (0.7-4.9); Basophils % 0.3 % (0-1.3); Hematocrit 32.2 % (39.6-49.0); Lymphocytes % 10.3 % (15.3-44.8); MPV 7.6 fL (7.6-11.3)
[2019-07-09 05:20] LABS: BUN Blood Urea Nitrogen 9 mg/dL (7-18); Bicarbonate 27 mmol/L (21-32); Glucose Level 133 mg/dL (74-106); Phosphorus 1.4 mg/dL (2.5-4.9); Sodium Level 136 mmol/L (136-145)
[2019-07-09] MEDS ORDERED: POTASSIUM PHOS IN 0.9 % NACL 15 MMOL/250 ML BAG IV ONE (08:00)
[2019-07-09] MEDS: SODIUM CHLORIDE 0.9% 10ML INJ IV SCH (08:00)
[2019-07-09] MEDS: ENOXAPARIN 40 MG/0.4 ML SQ SCH (08:50)
[2019-07-09] MEDS: PANTOPRAZOLE 40 MG INJ IV SCH (08:51)
--- NOTE | 2019-07-09 15:22 | PN ---
Date of Progress Note: 07/09/2019 Subjective: Patient is awake, alert. No complaints. Feels much better than yesterday. Physical Examination: Vital Signs: Stable. Afebrile. Abdomen: Soft, nondistended, nontender. Positive bowel sounds. White count is down to 11.2. Left shift has improved as well. His urine output is more than adequat e. NG tube is putting out 600 in last shift. He did have a small bowel movement and he is passing s mall amount of gas, but the bowel movement was mostly bloody mucousy tissue from the anastomosis prob ably. Assessment: Status post reversal of sigmoid colostomy. Recommendations: We will discontinue the Miller, keep him n.p.o., and NG tube 1 more day until he has better bowel movements and make sure the anastomosis has enough time to heal properly. He is clinic ally doing very well and do not want to smart anything. We will continue him on IV antibiotics. We w ill transfer him to the floor, discontinue the Miller, encourage ambulation, incentive spirometry. /MODL Voice ID: [id number] Report ID: [id number]
[2019-07-09] MEDS: ACETAMINOPHEN 160 MG/5 ML UCUP PO PRN ×2 (17:13→17:57)
[2019-07-09] MEDS: LORazepam 2 MG/ML VIAL IV PRN (20:44)
[2019-07-10] MEDS: METRONIDAZOLE 500mg IVPB 500 MG/100 ML BAG IV SCH ×4 (00:39→17:00)
[2019-07-10] MEDS: CEFOXITIN/SWI 1gm 1 GM/10 ML SYR IV SCH ×4 (00:42→18:32)
[2019-07-10] MEDS: D5.45NS W/KCL 20MEQ 1,000 ML IV SCH ×4 (02:19→23:48)
[2019-07-10] MEDS: HYDROMORPHONE HCL 1 MG/ML INJ IV PRN ×2 (02:26→09:01)
[2019-07-10 05:59] LABS: Absolute Lymphocytes (CBC) 1.3 K/uL (0.7-4.9); Basophils % 0.3 % (0-1.3); Hematocrit 32.8 % (39.6-49.0); MPV 7.6 fL (7.6-11.3); RBC Red Blood Cell Count 3.61 M/uL (4.33-5.43)
[2019-07-10 06:17] LABS: BUN Blood Urea Nitrogen 7 mg/dL (7-18); Bicarbonate 29 mmol/L (21-32); Glucose Level 120 mg/dL (74-106); Phosphorus 2.7 mg/dL (2.5-4.9); Potassium 3.8 mmol/L (3.5-5.1); Sodium Level 136 mmol/L (136-145)
[2019-07-10] MEDS ORDERED: KCL 20 MEQ/100 mL IVPB 20 MEQ/100 ML BAG IV SCH (08:00)
[2019-07-10] MEDS: PANTOPRAZOLE 40 MG INJ IV SCH (08:41)
[2019-07-10] MEDS: ENOXAPARIN 40 MG/0.4 ML SQ SCH (08:41)
[2019-07-10] MEDS: SODIUM CHLORIDE 0.9% 10ML INJ IV SCH (08:42)
--- NOTE | 2019-07-10 12:44 | PN ---
Subjective: Patient is awake, alert, passing gas. No pain. Objective: Vital Signs: Stable. Afebrile. Abdomen: Benign. Wound: Clean, dry and intact. White count is normal. Assessment: Status blood reversal of sigmoid colostomy. Recommendation: We will clamp the NG tube and start him on clear liquids and slowly advance diet. C ontinue IV antibiotics. Encourage ambulation, incentive spirometry. Patient clinically is doing albert robles /MODL Voice ID: [id number] Report ID: [id number]
[2019-07-10] MEDS: HYDROCODONE/APAP 5/325 MG TAB PO PRN (16:26)
[2019-07-10] MEDS: HYDROMORPHONE/PCA 0 / ML SYR IV PRN (17:04)
[2019-07-10] MEDS: LORazepam 2 MG/ML VIAL IV PRN (20:49)
[2019-07-11] MEDS: METRONIDAZOLE 500mg IVPB 500 MG/100 ML BAG IV SCH ×4 (01:10→17:00)
[2019-07-11] MEDS: CEFOXITIN/SWI 1gm 1 GM/10 ML SYR IV SCH ×4 (01:10→18:35)
[2019-07-11 06:28] LABS: BUN Blood Urea Nitrogen 7 mg/dL (7-18); Bicarbonate 26 mmol/L (21-32); Glucose Level 130 mg/dL (74-106); Potassium 3.6 mmol/L (3.5-5.1); Sodium Level 137 mmol/L (136-145)
[2019-07-11] MEDS ORDERED: POTASSIUM 25 MEQ EFFERV TAB PO ONE (08:00)
[2019-07-11] MEDS: D5.45NS W/KCL 20MEQ 1,000 ML IV SCH (08:59)
[2019-07-11] MEDS: ENOXAPARIN 40 MG/0.4 ML SQ SCH (09:01)
[2019-07-11] MEDS: PANTOPRAZOLE 40 MG INJ IV SCH (09:01)
[2019-07-11] MEDS: SODIUM CHLORIDE 0.9% 10ML INJ IV SCH (09:01)
[2019-07-11] MEDS: HYDROCODONE/APAP 5/325 MG TAB PO PRN (13:46)
[2019-07-11] MEDS: HYDROMORPHONE/PCA 0 / ML SYR IV PRN (13:57)
[2019-07-11] MEDS ORDERED: D5.45NS W/KCL 20MEQ 1,000 ML IV SCH (14:00)
--- NOTE | 2019-07-11 15:44 | PN ---
Date of Progress Note: 07/11/2019 Subjective: Patient is awake, alert. No complaints. Had another bowel movement. Tolerated clear l iquids. There was no nausea or vomiting with the NG tube being clamped that was discontinued yesterd ay. Objective: Vital Signs: Stable. He is afebrile. Abdomen: Benign. Skin: Wound is clean, dry, and intact. Assessment: Status post sigmoid colostomy reversal. Recommendations: We will slowly advance diet to full liquids today and GI soft tomorrow. We will tr y to wean him off the parenteral pain medicine with [place] and encourage ambulation and incentive spir ometry. Patient clinically is doing better. /MODL Voice ID: [id number] Report ID: [id number]
[2019-07-11] MEDS: LORazepam 2 MG/ML VIAL IV PRN (21:10)
[2019-07-12] MEDS: METRONIDAZOLE 500mg IVPB 500 MG/100 ML BAG IV SCH ×4 (00:14→17:10)
[2019-07-12] MEDS: CEFOXITIN/SWI 1gm 1 GM/10 ML SYR IV SCH ×4 (02:14→18:37)
[2019-07-12 05:43] LABS: BUN Blood Urea Nitrogen 7 mg/dL (7-18); Bicarbonate 27 mmol/L (21-32); Glucose Level 104 mg/dL (74-106); Potassium 3.8 mmol/L (3.5-5.1); Sodium Level 137 mmol/L (136-145)
[2019-07-12] MEDS ORDERED: KCL 20 MEQ/100 mL IVPB 20 MEQ/100 ML BAG IV SCH (08:00)
[2019-07-12] MEDS: ENOXAPARIN 40 MG/0.4 ML SQ SCH (08:01)
[2019-07-12] MEDS: PANTOPRAZOLE 40 MG INJ IV SCH (08:01)
[2019-07-12] MEDS: SODIUM CHLORIDE 0.9% 10ML INJ IV SCH (08:02)
[2019-07-12] MEDS: HYDROMORPHONE/PCA 0 / ML SYR IV PRN ×2 (08:59→22:22)
--- NOTE | 2019-07-12 10:07 | PN ---
Date of Progress Note: 07/12/2019 Subjective: Patient is awake, alert. No complaint. Tolerating full liquids, having bowel movement. Objective: Vital Signs: Stable. Afebrile. Abdomen: Benign, status post reversal of sigmoid colostomy. Recommendations: Advance diet to a GI soft and probable discharge tomorrow, encourage ambulation, in centive spirometry. /MODL Voice ID: [id number] Report ID: [id number]
[2019-07-12] MEDS: LORazepam 2 MG/ML VIAL IV PRN (20:26)
[2019-07-13] MEDS: METRONIDAZOLE 500mg IVPB 500 MG/100 ML BAG IV SCH ×3 (01:13→11:16)
[2019-07-13] MEDS: CEFOXITIN/SWI 1gm 1 GM/10 ML SYR IV SCH ×3 (01:16→14:12)
[2019-07-13 06:04] LABS: BUN Blood Urea Nitrogen 8 mg/dL (7-18); Bicarbonate 29 mmol/L (21-32); Glucose Level 112 mg/dL (74-106); Sodium Level 135 mmol/L (136-145)
[2019-07-13 09:06] VITALS: O2SAT 95
[2019-07-13] MEDS: ENOXAPARIN 40 MG/0.4 ML SQ SCH (09:24)
[2019-07-13] MEDS: SODIUM CHLORIDE 0.9% 10ML INJ IV SCH (09:26)
[2019-07-13] MEDS: PANTOPRAZOLE 40 MG INJ IV SCH (09:26)
[2019-07-13] MEDS: HYDROCODONE/APAP 5/325 MG TAB PO PRN ×2 (11:15→15:07)
[2019-07-13 13:14] VITALS: BP 120/70; TEMP 97
[2019-07-13] MEDS: HYDROMORPHONE HCL 1 MG/ML INJ IV PRN (14:14)
--- NOTE | 2019-07-14 03:39 | DS ---
Date of Discharge: 07/13/2019 Admitting Diagnosis: Status post Daiz's procedure for perforated sigmoid diverticulitis. Discharge Diagnosis: Status post Diaz's procedure for perforated sigmoid diverticulitis. Procedure Performed: Diagnostic laparoscopy, exploratory laparotomy, lysis of adhesions reversal wit h sigmoid colostomy. Hospital Course: Patient is a 44-year-old gentleman, who underwent the aforementioned procedure. Po stoperatively, he was in the ICU for a couple of days. He did well, his electrolytes were checked an d they were replaced as needed. N.p.o. NG tube, IV fluids, and Miller were maintained for a couple d ays, then the Miller was DC'd. His leukocytosis improved over the course of his stay, has normalized. His electrolytes have normalized. He started having flatus later in the week and NG tube was clamp ed, he was started on clear liquids, advanced slowly to full liquids, and then to GI soft, which he i s tolerating. He is tolerating diet, ambulating, pain controlled with p.o. pain medication, afebrile . Therefore, patient will be discharged to home. Disposition: Home. Condition: Stable. Discharge Instructions: Resume home medications and diet. Activity as tolerated. No heavy lifting. Remove outer dressing in a.m. Shower. Keep wound clean and dry. Follow up in my office in 1 week . Call for appointment. [place] 7.5 one p.o. q.4 p.r.n. pain, Cipro 500 mg p.o. q.12, Flagyl 500 mg p.o. daily, Colace 100 mg p.o. q.12. /MODL Voice ID: [id number] Report ID: [id number]
== END 2019-07-13 16:00 | disposition home or self-care (01) | DRG 331 ==
LOC: OR 07:26 → 3RD-ICU 12:57 → 4TH 07-09 13:20
PROVIDERS: ADMIT Surgery; ATTEND Surgery
PROC: 0DJD4ZZ Inspection of Lower Intestinal Tract, Percutaneous Endoscopic Approach (ICD-10-PCS; 2019-07-06)
PROC: 0DNP0ZZ Release Rectum, Open Approach (ICD-10-PCS; 2019-07-06)
PROC: 0DBN0ZZ Excision of Sigmoid Colon, Open Approach (ICD-10-PCS; principal; 2019-07-06 08:30)
DX: Z43.3 Encounter for attention to colostomy (principal); K66.0 Peritoneal adhesions (postprocedural) (postinfection); R51 Headache; R50.9 Fever, unspecified
CPT/HCPCS: 36415; 80048; 83735; 84100; 85025; 88304; 88305; 97116; 97161; 97530; C9113; J1170; J1650; J2175; J2250; J2405; J2550; J2704; J2710; J3010; J7030; J7040; J7120

== ENCOUNTER 2022-10-15 14:02 | Inpatient (IN) | payer OTHER ==
[2022-10-15 17:22] LABS: Absolute Lymphocytes (CBC) 0.9 K/uL (0.7-4.9); Lymphocytes % 5.2 % (15.3-44.8); MCV 90.9 fL (80-100); MPV 7.2 fL (7.6-11.3); RBC Red Blood Cell Count 5.39 M/uL (4.33-5.43)
[2022-10-15 17:35] LABS: Albumin 4.4 g/dL (3.4-5.0); Bilirubin Total 0.7 mg/dL (0.2-1.0); Potassium 4.3 mmol/L (3.5-5.1); Protein, Total 8.1 g/dL (6.4-8.2)
--- NOTE | 2022-10-15 18:28 | RAD REPORT ---
EXAM DESCRIPTION: CTAbdomen Pelvis W Contrast - 10/15/2022 6:18 pm CLINICAL HISTORY: Abdominal pain. ABD PAIN COMPARISON: No comparisons TECHNIQUE: Biphasic CT imaging of the abdomen and pelvis was performed with 100 ml non-ionic IV cont rast. All CT scans are performed using dose optimization technique as appropriate and may include automated exposure control or mA/KV adjustment according to patient size. FINDINGS: The lung bases are clear. The liver shows mild diffuse fatty infiltration. Spleen, pancreas, adrenal glands and kidneys are wit hin normal limits. No bowel obstruction, free air, free fluid or abscess. Mild thickening of the colon is present. Posts urgical changes involve the rectum. The appendix is normal. No evidence of significant lymphadenopat hy. Small fat containing ventral hernia. No suspicious bony findings. IMPRESSION: Mild colon thickening could indicate colitis. Mild diffuse fatty infiltration. Postsurgical changes in the region of the rectum, incompletely assessed.
[2022-10-15] MEDS ORDERED: ONDANSETRON 4 MG/2 ML VIAL ONE (19:02)
[2022-10-15] MEDS ORDERED: MORPHINE 4 MG/ML SYR ONE (19:02)
--- NOTE | 2022-10-15 19:02 | EDPHYS ---
Physician Documentation [facility] Name: Timmy Ji Age: 47 yrs Sex: Male : 1975 Arrival Date: 10/15/2022 Time: 14:06 Bed 19 Private MD: ED Physician Mohit Davis HPI: 10/15 18:19 This 47 yrs old Male presents to ER via Ambulatory with complaints of Abdominal Pain, kb Bloody Stools. 18:19 The patient presents with abdominal pain in the lower abdomen. kb 18:20 Onset: The symptoms/episode began/occurred this morning. The symptoms do not radiate. kb Associated signs and symptoms: Pertinent positives: blood in stools. The symptoms are described as constant. Modifying factors: The symptoms are alleviated by nothing, the symptoms are aggravated by nothing. Severity of pain: At its worst the pain was moderate in the emergency department the pain is unchanged. The patient has not experienced similar symptoms in the past. The patient has not recently seen a physician. Historical: - Allergies: 14:42 No Known Allergies; jl7 - Home Meds: 14:42 Ozempic subcutaneous [Active]; phentermine oral [Active]; jl7 - PMHx: 14:42 ruptured colon; Diabetes mellitus; jl7 - Immunization history:: Client reports receiving the Tyron \T\ Tyron single-dose vaccine. - Social history:: Smoking status: Reported history of juuling and/or vaping. ROS: 18:19 Constitutional: Negative for fever, chills, and weight loss. kb 18:19 Abdomen/GI: Positive for abdominal pain, rectal bleeding. 18:19 All other systems are negative. kb Exam: 18:19 Constitutional: This is a well developed, well nourished patient who is awake, alert, kb and in no acute distress. Head/Face: Normocephalic, atraumatic. ENT: Moist Mucous membranes Cardiovascular: Regular rate and rhythm with a normal S1 and S2. No gallops, murmurs, or rubs. No pulse deficits. Respiratory: Respirations even and unlabored. No increased work of breathing. Talking in full sentences Skin: Warm, dry with normal turgor. Normal color. MS/ Extremity: Pulses equal, no cyanosis. Neurovascular intact. Full, normal range of motion. Neuro: Awake and alert, GCS 15, oriented to person, place, time, and situation. Moves all extremities. Normal gait. Psych: Awake, alert, with orientation to person, place and time. Behavior, mood, and affect are within normal limits. 18:19 Abdomen/GI: Inspection: abdomen appears normal, Bowel sounds: normal, Palpation: soft, in all quadrants, mild abdominal tenderness, in the left lower quadrant. Vital Signs: 14:42 BP 129 / 92; Pulse 97; Resp 15; Temp 98.2; Pulse Ox 98% ; Weight 97.52 kg; Height 5 ft. jl7 10 in. (177.80 cm); Pain 4/10; 14:42 Body Mass Index 30.85 (97.52 kg, 177.80 cm) jl7 MDM: 14:26 Patient medically screened. kb 18:20 Differential diagnosis: diverticulitis, gastritis, GI Bleed, non-specific abd pain. kb Data reviewed: vital signs, nurses notes. ED course: Patient is a 47-year-old male with lower abdominal pain and blood in stools that started this morning. On exam patient has mild tenderness to her left lower quadrant. Nontoxic in appearance. Will obtain serum labs and CT scan.. 18:58 Management of patient was discussed with the following: Hospitalist: Floridalma cruzs pt kb under Dr Tobar. Counseling: I had a detailed discussion with the patient and/or guardian regarding: the historical points, exam findings, and any diagnostic results supporting the discharge/admit diagnosis, lab results, radiology results, the need for further work-up and treatment in the hospital. 10/15 14:44 Order name: CBC with Diff 10/15 14:44 Order name: CMP 10/15 14:44 Order name: Lipase 10/15 17:25 Order name: CBC with Automated Diff; Complete Time: 19:08 EDMS 10/15 17:35 Order name: Comprehensive Metabolic Panel; Complete Time: 17:39 EDMS 10/15 17:35 Order name: Lipase; Complete Time: 17:39 EDMS 10/15 14:44 Order name: CT Abd/Pelvis - IV Contrast Only 10/15 18:29 Order name: CT; Complete Time: 18:31 EDMS 10/15 18:55 Order name: SARS RAPID mb9 10/15 19:05 Order name: Manual Differential; Complete Time: 19:08 EDMS 10/15 19:28 Order name: SARS-COV-2 Antigen Rapid; Complete Time: 19:36 EDMS 10/15 14:44 Order name: IV Saline Lock; Complete Time: 17:13 kb 10/15 14:44 Order name: Labs collected and sent; Complete Time: 17:14 kb Administered Medications: 19:14 Drug: Flagyl (metroNIDAZOLE) 500 mg Volume: 100 ml; Route: IVPB; Rate: 200 ml/hr; mb9 Infused Over: 30 mins; Site: right antecubital; 19:54 Follow up: Response: No adverse reaction; IV Status: Completed infusion mb9 19:15 Drug: NS 0.9% 1000 ml Route: IV; Rate: 1 bolus; Site: right antecubital; mb9 19:15 Drug: Zofran (Ondansetron) 4 mg Route: IVP; Site: right antecubital; mb9 19:16 Drug: morphine 4 mg Route: IVP; Infused Over: 4 mins; Site: right antecubital; mb9 19:53 Drug: Cipro (ciprofloxacin) 400 mg Volume: 200 ml; Route: IVPB; Infused Over: 60 mins; mb9 Site: right antecubital; Disposition: 10/16 08:04 Co-signature as Attending Physician, Mohit Davis MD I reviewed the patient's care rn provided by the Advanced Practice Provider and agree with the diagnosis and treatment plan. Disposition Summary: 10/15/22 19:02 Hospitalization Ordered Hospitalization Status: Observation kb Provider: Telly Tobar Condition: Stable kb Problem: new kb Symptoms: are unchanged kb Bed/Room Type: Standard Location: Telemetry/MedSurg (observation)(10/15/22 21:21) Room Assignment: [facility](10/15/22 21:21) Diagnosis - Left sided colitis with rectal bleeding kb Forms: - Medication Reconciliation Form kb - SBAR form kb Signatures: Dispatcher [employer] Estefanía De Luna, YURI BARFIELDP-Mohit Carpio MD MD rn Garcia, Cindy, RN RN cg Leal, Jahala, RN RN jl7 Sarah Copeland RN RN mb9 Corrections: (The following items were deleted from the chart) 10/15 18:19 18:19 Abdomen/GI: Positive for abdominal pain, kb kb 18:20 18:19 The patient presents with abdominal pain kb kb : 19:02 Telemetry/MedSurg (observation) kb cg : 19:02 kb cg : 20:41 [facility] ER HOLD cg cg : 20:41 ERHOLD- cg cg
--- NOTE | 2022-10-15 19:02 | ER ---
Nurse's Notes [facility] Name: Timmy Ji Age: 47 yrs Sex: Male : 1975 Arrival Date: 10/15/2022 Time: 14:06 Bed 19 Private MD: Diagnosis: Left sided colitis with rectal bleeding Presentation: 10/15 14:40 Chief complaint: Patient states: Lower abdominal pain and blood in stool since this jl7 morning, hx of ruptured colon. Coronavirus screen: At this time, the client does not indicate any symptoms associated with coronavirus-19. Ebola Screen: No symptoms or risks identified at this time. Initial Sepsis Screen: Does the patient meet any 2 criteria? No. Patient's initial sepsis screen is negative. Does the patient have a suspected source of infection? No. Patient's initial sepsis screen is negative. Risk Assessment: Do you want to hurt yourself or someone else? Patient reports no desire to harm self or others. Onset of symptoms was October 15, 2022. 14:40 Method Of Arrival: Ambulatory [facility] 14:40 Acuity: BEVERLY 3 jl7 Historical: - Allergies: 14:42 No Known Allergies; jl7 - Home Meds: 14:42 Ozempic subcutaneous [Active]; phentermine oral [Active]; jl7 - PMHx: 14:42 ruptured colon; Diabetes mellitus; jl7 - Immunization history:: Client reports receiving the Tyron \\T\\ Tyron single-dose vaccine. - Social history:: Smoking status: Reported history of juuling and/or vaping. Screenin:19 [facility] ED Fall Risk Assessment (Adult) History of falling in the last 3 months, mb9 including since admission No falls in past 3 months (0 pts) Confusion or Disorientation No (0 pts) Intoxicated or Sedated No (0 pts) Impaired Gait No (0 pts) Mobility Assist Device Used No (0 pt) Altered Elimination No (0 pt) Score/Fall Risk Level 0 - 2 = Low Risk Oriented to surroundings, Maintained a safe environment, Educated pt \\T\\ family on fall prevention, incl call for assistance when getting out of bed. Abuse screen: Denies threats or abuse. Nutritional screening: No deficits noted. Tuberculosis screening: No symptoms or risk factors identified. Assessment: 18:45 Reassessment: pt brought back to ER room. mb9 19:16 General: Appears uncomfortable, Behavior is cooperative. General: Appears in no mb9 apparent distress. Behavior is. Pain: Complains of pain in left lower quadrant Pain radiates to RLQ Pain currently is 10 out of 10 on a pain scale. Is continuous. Neuro: Level of Consciousness is awake, alert, obeys commands, Oriented to person, place, time, situation, Appropriate for age. Cardiovascular: Heart tones S1 S2 present Rhythm is regular. Respiratory: Airway is patent Respiratory effort is even, unlabored, Respiratory pattern is regular, symmetrical. GI: Abdomen is round non-distended, Bowel sounds present X 4 quads. Abd is soft Abdomen is tender to palpation in right lower quadrant and left lower quadrant Reports bloody stool, nausea, since this morning. pt states "I have to go to the bathroom every 10 minutes and its just blood when i poop". Derm: Skin is pink, warm \\T\\ dry. Musculoskeletal: Range of motion: intact in all extremities. Vital Signs: 14:42 BP 129 / 92; Pulse 97; Resp 15; Temp 98.2; Pulse Ox 98% ; Weight 97.52 kg; Height 5 ft. jl7 10 in. (177.80 cm); Pain 4/10; 14:42 Body Mass Index 30.85 (97.52 kg, 177.80 cm) jl7 ED Course: 14:06 Patient arrived in ED. rg4 14:25 Estefanía Barah[facility]-C [facility]. kb 14:25 Mohit Davis MD is Attending Physician. kb 14:42 Triage completed. jl7 14:42 Arm band placed on right wrist. Patient placed in waiting room, Patient notified of jl7 wait time. 17:12 Inserted saline lock: 20 gauge in right antecubital area, using aseptic technique. zm Blood collected. 17:13 CBC with Diff Sent. zm 17:13 CMP Sent. zm 17:13 Lipase Sent. zm 19:02 Telly Tobar is Hospitalizing Provider. kb 19:14 Sarah Copeland, GAGE is Primary Nurse. mb9 19:14 SARS RAPID Sent. mb9 19:19 Placed in gown. Bed in low position. Call light in reach. Side rails up X 1. Client mb9 placed on continuous cardiac and pulse oximetry monitoring. NIBP monitoring applied. desk monitor on. Door closed. Noise minimized. Warm blanket given. Pillow given. 19:20 No provider procedures requiring assistance completed. mb9 22:18 Patient admitted, IV remains in place. ll3 Administered Medications: 19:14 Drug: Flagyl (metroNIDAZOLE) 500 mg Volume: 100 ml; Route: IVPB; Rate: 200 ml/hr; mb9 Infused Over: 30 mins; Site: right antecubital; 19:54 Follow up: Response: No adverse reaction; IV Status: Completed infusion mb9 19:15 Drug: NS 0.9% 1000 ml Route: IV; Rate: 1 bolus; Site: right antecubital; mb9 19:15 Drug: Zofran (Ondansetron) 4 mg Route: IVP; Site: right antecubital; mb9 19:16 Drug: morphine 4 mg Route: IVP; Infused Over: 4 mins; Site: right antecubital; mb9 19:53 Drug: Cipro (ciprofloxacin) 400 mg Volume: 200 ml; Route: IVPB; Infused Over: 60 mins; mb9 Site: right antecubital; Medication: 19:20 VIS not applicable for this client. mb9 Outcome: 19:02 Decision to Hospitalize by Provider. kb 22:18 Admitted to Tele accompanied by nurse, via wheelchair, room 404, with chart, Report ll3 called to GAGE Badillo 22:18 Condition: stable 22:18 Instructed on the need for admit, Demonstrated understanding of instructions. 22:21 Patient left the ED. 3 Signatures: Estefanía Barahona, GENERAL INSPECTOR-C GENERAL INSPECTOR-CkNicol Viveros rg4 Ava Patel RN RN jl7 Mian Cummins RN RN brandon3 Maria Hernandez Mary Beth RN RN mb9
[2022-10-15] MEDS ORDERED: CIPROFLOXACIN 400mg IV 400 MG/200 ML BAG IV ONE (19:03)
[2022-10-15] MEDS ORDERED: NA CHLORIDE 0.9% 1,000 ML ONE (19:03)
[2022-10-15] MEDS ORDERED: METRONIDAZOLE 500mg IVPB 500 MG/100 ML BAG IV ONE (19:03)
[2022-10-15 19:05] LABS: Blood Morphology Comment NOT SEEN (NOT SEEN); Platelet Estimate ADEQ
[2022-10-15 19:28] LABS: SARS-CoV-2 Antigen Rapid Res Negative (Negative)
--- NOTE | 2022-10-15 20:00 | P.HP ---
Certification for Inpatient Patient admitted to: Inpatient With expected LOS: <2 Midnights Patient will require the following post-hospital care: None Practitioner: I am a practitioner with admitting privileges, knowledge of patient current condition, hospital course, and medical plan of care. Services: Services provided to patient in accordance with Admission requirements found in Title 42 Section 412.3 of the Code of Federal Regulations Patient History Date of Service: 10/15/22 Reason for admission: Colitis History of Present Illness: Patient is a 47 year old male with past medical history of diverticulitis and recent diagnosis of type 2 diabetes who presented to the emergency department with complaints of sudden onset abdominal pain and rectal bleeding that began this morning. Patient had ruptured sigmoid diverticulitis in 2018, required colostomy, and had it reversed 3 months later. He has not had any issues since. Reports his last colonoscopy was in 2019 or 2020 and was normal. WBC today is 16.9. CT abdomen pelvis showed "Mild colon thickening could indicate colitis. Mild diffuse fatty infiltration." He was given cipro, flagyl, morphine, and IVF in the emergency department. Patient is admitted for further management. Allergies No Known Allergies Allergy (Verified 07/06/19 08:23) Home medications list reviewed: Yes Home Medications: Ciprofloxacin HCl [Cipro 500 MG Tablet] 500 mg PO BID #20 tab 07/13/19 Docusate [Colace Cap] 100 mg PO BID #60 cap 07/13/19 metroNIDAZOLE [Flagyl] 500 mg PO Q8H #30 tablet 07/13/19 - Past Medical/Surgical History Diabetic: No -: Diverticulitis with perforation -: Type 2 diabetes -: March 2019- colostomy Psychosocial/ Personal History: Patient is . - Family History Father -: Heart disease, Diabetes Mother -: Heart disease - Social History Smoking Status: Current every day smoker (vapes) Alcohol use: No CD- Drugs: No Caffeine use: Yes Place of Residence: Home Review of Systems Gastrointestinal: Abdominal Pain, Diarrhea, Hematochezia Physical Examination - Vital Signs Temperature: 98.2 F Blood Pressure: 129/92 Pulse: 97 Respirations: 15 Pulse Ox (%): 98 - Physical Exam General: Alert, In no apparent distress HEENT: Atraumatic, EOMI, Sclerae nonicteric Neck: Supple, 2+ carotid pulse no bruit Respiratory: Clear to auscultation bilaterally, Normal air movement Cardiovascular: Regular rate/rhythm, Normal S1 S2 Gastrointestinal: Non-distended, Tenderness Musculoskeletal: No tenderness Integumentary: No rashes Neurological: Normal speech, Normal affect - Studies Laboratory Data (last 24 hrs) 10/15/22 17:08: Sodium 134 L, Potassium 4.3, BUN 14, Creatinine 1.10, Glucose 127 H, Total Bilirubin 0.7, AST 18, ALT 47, Alkaline Phosphatase 76, Lipase 81 10/15/22 17:08: WBC 16.90 H, Hgb 16.8, Hct 49.0, Plt Count 338 Assessment and Plan - Problems (Diagnosis) (1) Colitis Current Visit: Yes Status: Acute (2) Hematochezia Current Visit: Yes Status: Acute (3) Type 2 diabetes mellitus Current Visit: Yes Status: Acute Qualifiers: Diabetes mellitus adjunct faculty for medical terminology insulin use: without custodial use Diabetes mellitus complication status: with hyperglycemia Qualified Code(s): E11.65 - Type 2 diabetes mellitus with hyperglycemia - Plan Patient is admitted for further management of colitis. History of sigmoid diverticulitis with rupture. Reports rectal bleeding. H&H stable. Monitor closely. GI consulted. Continue cipro and flagyl. Dilaudid/zofran PRN pain/nausea. Limit diet to full liquids. Monitor and replete electrolytes per protocol. Reconcile and continue home medications. SCDs for VTE prophylaxis. Full code. Discharge Plan: Home Plan to discharge in: 48 Hours - Advance Directives Does patient have a Living Will: No Does patient have a Durable POA for Healthcare: No - Code Status/Comfort Care Code Status Assessed: Yes Code Status: Full Code Physician Review: Patient Assessed, Agree with Above Assessment and Plan Critical Care: No Time Spent Managing Pts Care (In Minutes): 50
[2022-10-15] MEDS: CIPROFLOXACIN 400mg IV 400 MG/200 ML BAG IV SCH (21:17)
[2022-10-15] MEDS: NA CHLORIDE 0.9% 1,000 ML IV SCH (21:17)
[2022-10-15] MEDS ORDERED: MORPHINE 4 MG/ML SYR IV PRN (21:17)
[2022-10-15] MEDS ORDERED: ACETAMINOPHEN 500 MG TAB PO PRN (21:17)
[2022-10-15] MEDS: HYDROMORPHONE HCL 1 MG/ML INJ IV PRN (23:14)
[2022-10-15 23:58] VITALS: BMI 30.8
[2022-10-16] MEDS: METRONIDAZOLE 500mg IVPB 500 MG/100 ML BAG IV SCH ×3 (01:00→16:22)
[2022-10-16] MEDS: ONDANSETRON 4 MG/2 ML VIAL IV PRN (02:30)
[2022-10-16] MEDS: HYDROMORPHONE HCL 1 MG/ML INJ IV PRN ×7 (03:16→22:58)
[2022-10-16 06:11] LABS: Absolute Lymphocytes (CBC) 1.4 K/uL (0.7-4.9); Hematocrit 42.1 % (39.6-49.0); MCV 90.3 fL (80-100); MPV 6.9 fL (7.6-11.3); RBC Red Blood Cell Count 4.66 M/uL (4.33-5.43)
[2022-10-16 06:24] LABS: Magnesium 1.9 mg/dL (1.6-2.4); Phosphorus 3.3 mg/dL (2.5-4.9); Potassium 3.8 mmol/L (3.5-5.1)
[2022-10-16] MEDS: NA CHLORIDE 0.9% 1,000 ML IV SCH ×3 (07:28→22:56)
[2022-10-16] MEDS: CIPROFLOXACIN 400mg IV 400 MG/200 ML BAG IV SCH ×2 (07:28→19:57)
[2022-10-16] MEDS ORDERED: POTASSIUM 25 MEQ EFFERV TAB PO ONE (09:00)
[2022-10-16 09:48] VITALS: O2SAT 100
--- NOTE | 2022-10-16 14:55 | P.CNS ---
Date of Consult: 10/16/22 Reason for consult: Abdominal pain and rectal bleeding History of present illness: Patient is a 47-year-old gentleman who presented to the emergency room yesterday associated with nausea and bloody diarrhea. Blood loss has diminished. Patient is still having crampy abdominal pain associated with nausea. Patient has no sore throat, runny nose, cough, headaches, dizziness, chest pain, fever or chills. Patient had a ruptured sigmoid diverticulitis. Patient had a Cao's procedure and reversal of colostomy 3 years ago. Patient had a colonoscopy in 2020 that was negative. Review of systems: Otherwise unremarkable Past medical history: Diabetes, diverticulitis Past surgical history: Coa's procedure and reversal of colostomy Allergies: none Social history: Patient vapes, does not drink alcohol Family history: Non-contributory Vital signs: Stable, afebrile Physical exam: Awake, alert and oriented x3 Head and neck exam: No Masses Chest: Clear Heart: S1-S2 Abdomen: Soft, nondistended, positive bowel sounds with minimal tenderness in the left lower quadrant. No evidence of peritonitis Extremity: Neurovascular intact and nontender Neuro: Nonfocal Rectal: No evidence of active bleeding at this time. No external hemorrhoids. Small internal hemorrhoids Diagnostic data: CT of the abdomen and pelvis reveals sigmoid colitis. Patient has leukocytosis with left shift Assessment: Acute sigmoid colitis Plan/recommendation: IV fluids, IV antibiotics and GI consult. No need for surgical intervention at this time. CC: Dr. Tobar's office
[2022-10-16] MEDS: GOLYTELY 4000 ML PO SCH ×2 (16:22→17:00)
--- NOTE | 2022-10-16 19:49 | P.PN ---
Subjective Date of Service: 10/16/22 Chief Complaint: Colitis Patient is complaining of uncontrolled squeezing abdominal pain. He reports multiple bowel movement with bright red blood. No fever, or nausea or vomiting. Physical Examination - Vital Signs Temperature: 97.7 F Blood Pressure: 154/80 Pulse: 92 Respirations: 18 Pulse Ox (%): 98 Assessment And Plan - Current Problems (Diagnosis) (1) Abdominal pain Current Visit: Yes Status: Acute (2) Colitis Current Visit: Yes Status: Acute (3) Hematochezia Current Visit: Yes Status: Acute (4) Type 2 diabetes mellitus Current Visit: Yes Status: Acute Qualifiers: Diabetes mellitus group home insulin use: without terminal block assembler use Diabetes mellitus complication status: with hyperglycemia Qualified Code(s): E11.65 - Type 2 diabetes mellitus with hyperglycemia - Plan Physical Exam General: Alert, moderate distress due to pain Respiratory: Clear to auscultation bilaterally, Normal air movement Cardiovascular: Regular rate/rhythm, Normal S1 S2 Gastrointestinal: Midline abdominal scar, non-distended, abdominal tenderness, no rebound tenderness or guarding. Musculoskeletal: No tenderness Integumentary: No rashes Neurological: Normal speech, Normal affect, no focal motor deficit. Plan: GI and surgery input appreciated. GI Dr. Adams recommend colonoscopy but after 3 days of antibiotics. Continue IV ciprofloxacin and Flagyl. Pain management with opioids. Patient started on clear liquid diet per GI. Serial abdominal examination. Monitor electrolytes. Monitor CBC to follow leukocytosis.
[2022-10-16] MEDS: HYDROCODONE/APAP 5/325 MG TAB PO PRN (21:12)
[2022-10-17] MEDS: HYDROMORPHONE HCL 1 MG/ML INJ IV PRN ×7 (01:58→21:38)
[2022-10-17] MEDS: METRONIDAZOLE 500mg IVPB 500 MG/100 ML BAG IV SCH ×3 (01:59→15:53)
[2022-10-17 03:56] LABS: Absolute Lymphocytes (CBC) 2.3 K/uL (0.7-4.9); Lymphocytes % 14.3 % (15.3-44.8); MCV 91.6 fL (80-100); MPV 7.3 fL (7.6-11.3); RBC Red Blood Cell Count 4.26 M/uL (4.33-5.43)
[2022-10-17] MEDS: HYDROCODONE/APAP 5/325 MG TAB PO PRN ×4 (04:00→23:15)
[2022-10-17 04:25] LABS: Potassium 3.4 mmol/L (3.5-5.1)
[2022-10-17] MEDS: ONDANSETRON 4 MG/2 ML VIAL IV PRN (05:48)
[2022-10-17] MEDS: NA CHLORIDE 0.9% 1,000 ML IV SCH ×2 (09:00→21:09)
[2022-10-17] MEDS ORDERED: POTASSIUM 25 MEQ EFFERV TAB PO ONE (09:00)
[2022-10-17] MEDS: CIPROFLOXACIN 400mg IV 400 MG/200 ML BAG IV SCH ×2 (09:01→21:09)
--- NOTE | 2022-10-17 16:26 | P.PN ---
Subjective Date of Service: 10/17/22 Chief Complaint: Colitis Patient states his abdominal pain is better He continues to have bloody bowel movements but the amount and frequency of bleeding have decreased No fever, or nausea or vomiting. He has been tolerating diet. Physical Examination - Vital Signs Temperature: 97.9 F Blood Pressure: 147/82 Pulse: 87 Respirations: 18 Pulse Ox (%): 96 Assessment And Plan - Current Problems (Diagnosis) (1) Abdominal pain Current Visit: Yes Status: Acute (2) Colitis Current Visit: Yes Status: Acute (3) Hematochezia Current Visit: Yes Status: Acute (4) Type 2 diabetes mellitus Current Visit: Yes Status: Acute Qualifiers: Diabetes mellitus long term care administrator insulin use: without long term care administrator use Diabetes mellitus complication status: with hyperglycemia Qualified Code(s): E11.65 - Type 2 diabetes mellitus with hyperglycemia - Plan Physical Exam General: Alert, NAD Respiratory: Clear to auscultation bilaterally, Normal air movement Cardiovascular: Regular rate/rhythm, Normal S1 S2 Gastrointestinal: Midline abdominal scar, non-distended, mild abdominal tenderness, no rebound tenderness or guarding. Musculoskeletal: No tenderness Integumentary: No rashes Neurological: No focal motor deficit. Plan: GI and surgery are following GI Dr. Adams recommend to continue antibiotics. No plans for colonoscopy as inpatient. Continue IV ciprofloxacin and Flagyl. Pain management with opioids. Diet advanced to full liquid. Serial abdominal examination. Monitor electrolytes. Monitor CBC to follow leukocytosis. Monitor hematochezia.
--- NOTE | 2022-10-17 17:11 | PN ---
Date of Progress Note: 10/17/2022 Subjective: The patient is awake, alert. Still with a little bit of crampy pain once in a while. T olerating his clear liquid, hungry for more solid food. The patient was seen by Dr. Adams, who wa s recommending continued medical management and we will perform a colonoscopy probably as an outpatie nt. The patient still has some blood-tinged diarrhea, but is decreased in volume and in frequency. Objective: Vital Signs: Stable. He is afebrile. Abdomen: Soft. Positive bowel sounds. Minimal tenderness. No rebound, rigidity, or guarding. Laboratory Data: Shows white count of 15.8. The left shift has improved, it is down to 78%. Assessment: Colitis. Recommendations: Continue medical management. Follow up with GI. Advance diet. Continue antibioti cs. We will follow this patient in the hospital. /MODL Voice ID: [id number] Report ID: [id number]
[2022-10-18] MEDS: METRONIDAZOLE 500mg IVPB 500 MG/100 ML BAG IV SCH ×2 (00:50→08:26)
[2022-10-18] MEDS: HYDROMORPHONE HCL 1 MG/ML INJ IV PRN ×3 (00:50→08:27)
[2022-10-18 04:46] VITALS: TEMP 97
[2022-10-18 05:10] LABS: Absolute Lymphocytes (CBC) 1.8 K/uL (0.7-4.9); Hematocrit 40.8 % (39.6-49.0); Lymphocytes % 11.9 % (15.3-44.8); MCV 91.9 fL (80-100); MPV 7.3 fL (7.6-11.3); RBC Red Blood Cell Count 4.44 M/uL (4.33-5.43)
[2022-10-18 05:13] LABS: Potassium 3.7 mmol/L (3.5-5.1)
[2022-10-18] MEDS: HYDROCODONE/APAP 5/325 MG TAB PO PRN (05:37)
[2022-10-18] MEDS ORDERED: POTASSIUM CL SA 10 MEQ TAB PO ONE (06:00)
[2022-10-18] MEDS: NA CHLORIDE 0.9% 1,000 ML IV SCH (08:26)
[2022-10-18] MEDS: CIPROFLOXACIN 400mg IV 400 MG/200 ML BAG IV SCH (08:26)
[2022-10-18 08:39] VITALS: BP 114/59
[2022-10-18] MEDS ORDERED: LACTOBACILLUS/ACIDOPHILUS TAB PO SCH (10:00)
--- NOTE | 2022-10-18 10:38 | P.DS ---
Admission Date: 10/15/22 Discharge Date: 10/18/22 Disposition: ROUTINE DISCHARGE Discharge Condition: FAIR Reason for Admission: Colitis - Problems (1) Abdominal pain Current Visit: Yes Status: Acute (2) Colitis Current Visit: Yes Status: Acute (3) Hematochezia Current Visit: Yes Status: Acute (4) Type 2 diabetes mellitus Current Visit: Yes Status: Acute Qualifiers: Diabetes mellitus intermodal customer service insulin use: without intermodal customer service use Diabetes mellitus complication status: with hyperglycemia Qualified Code(s): E11.65 - Type 2 diabetes mellitus with hyperglycemia Brief History of Present Illness: Patient is a 47 year old male with past medical history of diverticulitis and recent diagnosis of type 2 diabetes who presented to the emergency department with complaints of sudden onset abdominal pain and rectal bleeding. Patient had ruptured sigmoid diverticulitis in 2019, required colostomy, and had it reversed 3 months later. He has not had any issues since. Reports his last colonoscopy was in 2019 or 2020 and was normal. WBC today is 16.9. CT abdomen pelvis showed "Mild colon thickening could indicate colitis. Mild diffuse fatty infiltration." He was given cipro, flagyl, morphine, and IVF in the emergency department. Patient was admitted for further management. Hospital Course: Patient admitted to the medical floor and treated with IV ciprofloxacin and Flagyl he was seen by gastroenterology and general surgery GI Dr. Adams recommended to medical management with antibiotics for now, and follow-up with him as an outpatient for colonoscopy after a week or 2 of antibiotics. He was also seen by general surgery Dr. Terrell who recommended medical management, no indication for any surgical intervention. Pain was managed with opioids. The rectal bleeding reduced in frequency and amount and finally stopped. Patient has tolerated diet advancement to soft consistency. Vitals have been stable. Patient is ambulatory and he is deemed stable for discharge. He has been told to return to the ED should he experience another episode of gross rectal bleeding. Vital Signs/Physical Exam: Temp Pulse Resp BP Pulse Ox 97 F 81 18 114/59 L 97 10/18/22 08:00 10/18/22 08:00 10/18/22 08:00 10/18/22 08:00 10/18/22 08:00 General: Alert, In no apparent distress, Oriented x3 HEENT: Mucous membr. moist/pink Respiratory: Clear to auscultation bilaterally, Normal air movement Cardiovascular: No edema, Regular rate/rhythm, Normal S1 S2 Gastrointestinal: Soft and benign, Non-distended, No tenderness Musculoskeletal: No swelling Integumentary: No rashes Neurological: Normal strength at 5/5 x4 extr Laboratory Data at Discharge: WBC 14.80 K/uL (4.3-10.9) H 10/18/22 04:24 Hgb 14.0 g/dL (13.6-17.9) 10/18/22 04:24 Hct 40.8 % (39.6-49.0) 10/18/22 04:24 Plt Count 281 K/uL (152-406) 10/18/22 04:24 Sodium 136 mmol/L (136-145) 10/18/22 04:24 Potassium 3.7 mmol/L (3.5-5.1) 10/18/22 04:24 BUN 5 mg/dL (7-18) L 10/18/22 04:24 Creatinine 0.94 mg/dL (0.70-1.30) 10/18/22 04:24 Glucose 132 mg/dL (74-106) H 10/18/22 04:24 Phosphorus 3.3 mg/dL (2.5-4.9) 10/16/22 05:57 Magnesium 1.9 mg/dL (1.6-2.4) 10/16/22 05:57 Total Bilirubin 0.7 mg/dL (0.2-1.0) 10/15/22 17:08 AST 18 U/L (15-37) 10/15/22 17:08 ALT 47 U/L (16-61) 10/15/22 17:08 Alkaline Phosphatase 76 U/L (45-117) 10/15/22 17:08 Lipase 81 U/L (73-393) 10/15/22 17:08 Home Medications: Phentermine HCl 37.5 mg PO DAILY 10/15/22 Semaglutide [Ozempic] 0.25 mg SQ DAILY 10/15/22 Ciprofloxacin HCl [Cipro 500 MG Tablet] 500 mg PO BID 20 Days #20 tab 10/18/22 Hydrocodone 5/APAP 325 [[place] 5/325*] 1 tab PO Q6H PRN #20 tab 10/18/22 metroNIDAZOLE [Flagyl*] 500 mg PO Q8H #30 tablet 10/18/22 New Medications: Ciprofloxacin HCl [Cipro 500 MG Tablet] 500 mg PO BID 20 Days #20 tab metroNIDAZOLE [Flagyl*] 500 mg PO Q8H #30 tablet Hydrocodone 5/APAP 325 [[place] 5/325*] 1 tab PO Q6H PRN #20 tab PRN Reason: Pain Scale 5-7 (Moderate) Physician Discharge Instructions: Full liquid diet and advance to soft diet as tolerated. Diet: ADA Followup: NONE,NONE [Primary Care Provider] - Jf Adams MD [ACTIVE - CAN ADMIT] - 1-2 Weeks Time spent managing pt's care (in minutes): 36
--- NOTE | 2022-10-18 11:53 | PN ---
Date of Progress Note: 10/18/2022 Subjective: The patient is awake, alert, feels better. Less diarrhea, less bloody bowel movement. No crampy abdominal pain. Objective: Vital Signs: Stable, afebrile. Abdomen: Soft, nondistended, nontender. Positive bowel sounds. Laboratory Data: White count is 14.8, there was a slight left shift. Assessment: Colitis. Recommendation: The patient cleared from Surgery standpoint for discharge, GI soft diet, low-fiber, and follow up with Dr. Adams for interval colonoscopy and discharged on oral antibiotics, Cipro an d Flagyl. /MODL Voice ID: [id number] Report ID: [id number]
== END 2022-10-18 12:45 | disposition home or self-care (01) | DRG 387 ==
LOC: ER 14:02 → ERHOLD 19:55 → 4TH 21:23
PROVIDERS: ADMIT Internal Medicine; ATTEND Internal Medicine
DX: K51.511 Left sided colitis with rectal bleeding (principal); E11.65 Type 2 diabetes mellitus with hyperglycemia; F17.290 Nicotine dependence, other tobacco product, uncomplicated; Z93.3 Colostomy status; Z79.899 Other long term (current) drug therapy; Z20.822 Contact with and (suspected) exposure to COVID-19
CPT/HCPCS: 36415; 74177; 80048; 80053; 83690; 83735; 84100; 85018; 85025; 87811; 96365; 96375; 99285; J0744; J1170; J2405; J7030; Q9967